=== PATIENT | male | born 1965 | race Caucasian/White ===

== ENCOUNTER 2016-10-17 14:30 | Emergency (ER) | payer MEDICARE, OTHER ==
--- NOTE | 2016-10-17 15:02 | ED ---
Seizure HPI - General Chief Complaint: Seizure Stated Complaint: SEIZURE Time Seen by Provider: 10/17/16 14:33 - History of Present Illness Initial Comments: The patient is a 51-year-old male who presents to the ED with a chief complaint of breakthrough seizure. The patient was at his [facility] participating in his activities for the day when the seizure suddenly occurred. Staff at the alf state that the seizure lasted for approximately 6-7 minutes prior to resolution. The seizure is described as a generalized tonic-clonic seizure. The patient was postictal for a period of approximately 15 minutes after began. Staff at the alf provide the patient with a oral Ativan 1 mg dissolving tablet during the seizure. Given the patient has underlying history of cerebral palsy, this patient has a known history of seizure disorder. Patient follows with Dr. Whitten at the [facility] in [place]. The patient has had no recent adjustments in his medications. The patient has not had any recent head trauma. Patient has not had any cough, fevers, chills. The patient does wear Depends. The patient has a history of UTIs in the past. By the time that the patient arrived in the ED, he had returned to his baseline. - Related Data Home Medications Medication Instructions Recorded Confirmed Aspirin [Aspirin EC] 81 mg PO DAILY 10/17/16 10/17/16 Calcium Carbonate [Calcium] 600 mg PO DAILY 10/17/16 10/17/16 LORazepam [Ativan] 1 mg PO DAILY PRN 10/17/16 10/17/16 Liver Formula 1 tab PO DAILY 10/17/16 10/17/16 Loratadine [Loratadine] 10 mg PO DAILY PRN 10/17/16 10/17/16 OXcarbazepine [Trileptal] 150 mg PO BID 10/17/16 10/17/16 busPIRone HCL 5 mg PO BID 10/17/16 10/17/16 Allergies Allergy/AdvReac Type Severity Reaction Status Date / Time No Known Allergies Allergy Verified 10/17/16 15:10 Review of Systems ROS Statement: Those systems with pertinent positive or pertinent negative responses have been documented in the HPI. ROS Other: All systems not noted in ROS Statement are negative. (ROS obtained from [facility] employee and the patient's sister) Limitations: ROS unobtainable due to patients medical condition Constitutional: Denies: fever Respiratory: Denies: cough, dyspnea Cardiovascular: Denies: chest pain Endocrine: Denies: fatigue Gastrointestinal: Denies: abdominal pain, nausea, vomiting, diarrhea, constipation Skin: Denies: rash Neurological: Reports: other (seizure activity) General Exam Limitations: altered mental status (AAOx1-2 (this is baseline for the patient)) General appearance: alert, in no apparent distress Head exam: Present: atraumatic (patient wearing a helmet), normocephalic, normal inspection Eye exam: Present: normal appearance, PERRL. Absent: scleral icterus, conjunctival injection Pupils: Present: normal accommodation, other (pupils are 3mm, equal and reactive ) ENT exam: Present: normal exam, normal oropharynx, mucous membranes moist Neck exam: Present: normal inspection Respiratory exam: Present: normal lung sounds bilaterally. Absent: respiratory distress, wheezes, rales, rhonchi, stridor Cardiovascular Exam: Present: regular rate, normal rhythm GI/Abdominal exam: Present: soft. Absent: distended, tenderness, guarding, rebound Extremities exam: Present: normal inspection, normal capillary refill, other ( increased tone of the bilateral upper and lower extremities) Back exam: Present: normal inspection Neurological exam: Present: alert, other (AAOx1-2 (patient's baseline)) Psychiatric exam: Present: normal affect, normal mood Skin exam: Present: warm, dry Course Vital Signs 10/17/16 15:10 Temperature 97.1 F L Pulse Rate 99 Respiratory 16 Rate Blood Pressure 120/75 O2 Sat by Pulse 99 Oximetry Medical Decision Making - Medical Decision Making Patient is a 51-year-old male who presents to ED with a chief complaint of breakthrough seizure. This occurred earlier today. It lasted for about 6-7 minutes prior to resolution. Patient was postictal for about 10-15 minutes prior to returning to his baseline. Patient is at his baseline here in the ED. Most recent seizure was approximately one month ago. This was described as generalized as well. Patient resides at a alf. He has not had any recent changes to his medications. No recent head trauma. Patient has had no signs of recent illness. Patient does wear diapers. Patient with history of multiple UTIs. We'll check a urine and urine culture. Check CBC, and neck. Patient takes Trileptal for seizure control. We'll check Trileptal level as well. Will contact patient's neurologist after lab results. Place patient in seizure precautions. 4:23 PM Updated patient's family of overall findings, including normal lab work and urinalysis. They state that the patient has remained at his baseline during his time here in the ED. The patient's sister expresses concern that perhaps the patient has not been obtaining enough sleep. She states that the patient has an obsession with his television. She states that he is constantly repairing his television within his mind. He has a hard time resting because of this. Unfortunately, Trileptal Level is a send-out lab. As such, I will not have the results of this test today. I did try to contact the patient's neurologist but was unable to reach her due to the fact that her office was closed and did not have a number to reach them in emergency. However, I did prenatal genetic counselor the patient's sister to make an appointment with them within the next 2- 3 days. If this is not possible, I have encouraged her to make an appointment as soon as she possibly can for follow-up. The patient may require adjustment in his Trileptal dosing. I encouraged her to return to the ED should the patient have any additional seizure activity while at the alf. I have answered all of her questions to her satisfaction. - Lab Data Result diagrams: 10/17/16 15:16 10/17/16 15:16 Lab Results 10/17/16 10/17/16 10/17/16 Range/Units 15:15 15:16 15:16 WBC 7.7 (3.8-10.6) k/uL RBC 4.71 (4.30-5.90) m/uL Hgb 14.4 (13.0-17.5) gm/dL Hct 42.4 (39.0-53.0) % MCV 89.9 (80.0-100.0) fL MCH 30.6 (25.0-35.0) pg MCHC 34.0 (31.0-37.0) g/dL RDW 13.3 (11.5-15.5) % Plt Count 358 (150-450) k/uL Neutrophils % (Manual) 75.0 % Lymphocytes % (Manual) 21.0 % Monocytes % (Manual) 3.0 % Eosinophils % (Manual) 1.0 % Neutrophils # (Manual) 5.8 (1.3-7.7) k/uL Lymphocytes # (Manual) 1.6 (1.0-4.8) k/uL Monocytes # (Manual) 0.2 (0-1.0) k/uL Eosinophils # (Manual) 0.1 (0-0.7) k/uL Nucleated RBCs 0 (0-0) /100 WBC Manual Slide Review Performed RBC Morphology Normal Sodium 140 (137-145) mmol/L Potassium 4.0 (3.5-5.1) mmol/L Chloride 103 (98-107) mmol/L Carbon Dioxide 26 (22-30) mmol/L Anion Gap 11 mmol/L BUN 9 (9-20) mg/dL Creatinine 0.59 L (0.66-1.25) mg/dL Est GFR (MDRD) Af Amer >60 (>60 ml/min/1.73 sqM) Est GFR (MDRD) Non-Af >60 (>60 ml/min/1.73 sqM) Glucose 91 (74-99) mg/dL Calcium 9.9 (8.4-10.2) mg/dL Magnesium 2.0 (1.6-2.3) mg/dL Urine Color Light Yellow Urine Appearance Cloudy (Clear) Urine pH 6.5 (5.0-8.0) Ur Specific [place] 1.009 (1.001-1.035) Urine Protein Negative (Negative) Urine Glucose (UA) Negative (Negative) Urine Ketones Negative (Negative) Urine Blood Negative (Negative) Urine Nitrite Negative (Negative) Urine Bilirubin Negative (Negative) Urine Urobilinogen <2.0 (<2.0) mg/dL Ur Leukocyte Esterase Negative (Negative) Urine RBC 1 (0-5) /hpf Urine WBC 1 (0-5) /hpf Urine Bacteria Rare H (None) /hpf Urine Mucus Rare H (None) /hpf Urine Yeast (Budding) Few H (None) /hpf Disposition Clinical Impression: Seizure disorder, Breakthrough seizure Disposition: HOME SELF-CARE Condition: Good Instructions: Recurrent Seizures in Adults (ED) Additional Instructions: Please follow up with Dr. Whitten from the [facility] within the next 2-3 days regarding your visit to the ED, if possible. Should this not be possible, please follow up with Dr. Whitten [facility]. Please return to the ED should the patient have additional seizures. Referrals: Freeman Stone DO [Primary Care Provider] - 10/24/16 Time of Disposition: 16:23
[2016-10-17 15:42] LABS: Aty Lym Flag Slight; CH 30.6; CHCM 34.2; HCT 42.4 % (39.0-53.0); HDW 2.24; HGB 14.4 gm/dL (13.0-17.5); MCH 30.6 pg (25.0-35.0); MCV 89.9 fL (80.0-100.0); Mean Platelet Volume 6.9; RBC 4.71 m/uL (4.30-5.90); RDW 13.3 % (11.5-15.5); WBC 7.7 k/uL (3.8-10.6); WBC (Perox) 7.57
[2016-10-17 15:45] LABS: Anion Gap 11 mmol/L; Blood Urea Nitrogen 9 mg/dL (9-20); Calcium 9.9 mg/dL (8.4-10.2); Carbon Dioxide 26 mmol/L (22-30); Chloride 103 mmol/L (98-107); Glucose 91 mg/dL (74-99); Non-African American GFR(MDRD) >60 (>60 ml/min/1.73 sqM); Sodium 140 mmol/L (137-145)
[2016-10-17 15:54] LABS: Appearance,Urine Cloudy (Clear); Bacteria,Urine Rare /hpf; Bilirubin,Urine Negative (Negative); Glucose,Urine (UA) Negative (Negative); Ketones,Urine Negative (Negative); Leukocyte Esterase,Urine Negative (Negative); Mucus,Urine Rare /hpf; Nitrite,Urine Negative (Negative); PH, Urine 6.5 (5.0-8.0); Particle Count 4011; Protein,Urine Negative (Negative); RBC,Urine 1 /hpf (0-5); Specific Gravity,Urine 1.009 (1.001-1.035); UA Billing (MACRO vs. MICRO) MICRO; Urobilinogen,Urine <2.0 mg/dL (<2.0); WBC,Urine 1 /hpf (0-5)
[2016-10-17 16:00] LABS: Add Differential Manual Differential
[2016-10-17 16:02] LABS: Manual Review Performed; Nucleated Red Blood Cells 0 /100 WBC (0-0); RBC Morphology Normal; Total Cells Counted 100
[2016-10-17 16:42] VITALS: BP 136/83; PULSE 102; RESP 18; TEMP 99
== END 2016-10-17 16:41 | disposition home or self-care (01) ==
LOC: EC 14:30
DX: G40.909 Epilepsy, unspecified, not intractable, without status epilepticus (principal); Z79.82 Long term (current) use of aspirin; Z79.899 Other long term (current) drug therapy
CPT/HCPCS: 36415; 80048; 80183; 81001; 83735; 85025; 87086; 93005; 99284

== ENCOUNTER 2017-10-04 12:46 | Emergency (ER) | payer MEDICARE, OTHER ==
[2017-10-04] MEDS ORDERED: SODIUM CHLORIDE 0.9% 500 ML IV STA (12:49)
--- NOTE | 2017-10-04 13:07 | ED ---
General Adult HPI - General Chief complaint: Seizure Stated complaint: seizure Time Seen by Provider: 10/04/17 12:49 Source: family, EMS, RN notes reviewed, old records reviewed, Caregiver Mode of arrival: EMS Limitations: altered mental status, physical limitation - History of Present Illness Initial comments: 52-year-old male with history of seizure disorder presents with seizure lasting approximately 2 minutes. Patient has multiple medical issues, he has history of cerebral palsy, quadriplegia, developmental delay. Patient was at his day program and had 2 minute witnessed seizure. According to staff members he was cyanotic and apneic during this episode. EMS reported heart rate in the 170s. According to the sister who is also his power of commonwealth attorney and primary caregiver he does have seizures with some frequency, approximately every 2 weeks. These are treated with Ativan as needed. He is not on any prophylactic medication secondary to side effects in the past. Currently taking 81 mg aspirin, Tylenol as needed and Ativan for breakthrough seizures. Patient is postictal at the time of my evaluation. - Related Data Home Medications Medication Instructions Recorded Confirmed Aspirin [Aspirin EC] 81 mg PO DAILY 10/17/16 10/04/17 Previous Rx's Medication Instructions Recorded Aspirin 325 mg PO DAILY #30 tab 10/04/17 Metoprolol Tartrate [Lopressor] 12.5 mg PO BID #60 dose 10/04/17 Allergies Allergy/AdvReac Type Severity Reaction Status Date / Time No Known Allergies Allergy Verified 10/04/17 13:02 Review of Systems ROS Statement: Those systems with pertinent positive or pertinent negative responses have been documented in the HPI. ROS Other: All systems not noted in ROS Statement are negative. Past Medical History Past Medical History: Seizure Disorder Additional Past Medical History / Comment(s): cerebral palsy, hydrocephalus with shunt, quadrapeligic History of Any Multi-Drug Resistant Organisms: None Reported Additional Past Surgical History / Comment(s): shunt in brain, foot surgery Past Psychological History: No Psychological Hx Reported Smoking Status: Never smoker Past Alcohol Use History: None Reported Past Drug Use History: None Reported General Exam Limitations: altered mental status, physical limitation General appearance: alert, in no apparent distress Head exam: Present: atraumatic, normocephalic Eye exam: Present: normal appearance, PERRL, EOMI ENT exam: Present: mucous membranes dry Neck exam: Present: normal inspection. Absent: tenderness, meningismus Respiratory exam: Present: normal lung sounds bilaterally. Absent: respiratory distress Cardiovascular Exam: Present: tachycardia, irregular rhythm GI/Abdominal exam: Present: soft. Absent: distended, tenderness Extremities exam: Present: normal capillary refill, other (Spasticity of all 4 extremities. No flaccid paralysis ). Absent: pedal edema Neurological exam: Present: alert Skin exam: Present: warm, dry, intact. Absent: cyanosis, diaphoretic Course Vital Signs 10/04/17 10/04/17 10/04/17 12:49 13:14 13:45 Pulse Rate 87 113 H 112 H Respiratory 20 20 20 Rate Blood Pressure 129/64 132/83 136/68 O2 Sat by Pulse 95 98 99 Oximetry 10/04/17 14:58 Pulse Rate 113 H Respiratory 18 Rate Blood Pressure 145/92 O2 Sat by Pulse 98 Oximetry EKG Findings - EKG Comments: EKG Findings:: EKG obtained a 12 53, A. fib with RVR, ventricular rate of 176, QRS duration 74, QTC 438. EKG obtained at 1356 shows sinus tachycardia with a rate of 116, CA interval 134, QRS duration 76, QTC 458, no ST segment elevation. Medical Decision Making - Medical Decision Making 52-year-old male presenting with tonic-clonic seizure lasting about 2 minutes. Patient does have seizure history, he has recurrent seizures approximately one every 2-3 weeks. When he initially presented. He was found to be in A. fib with RVR, ventricular rate of 176. Patient's heart rate improved and return to sinus with 500 mL normal saline bolus. Repeat EKG shows sinus tachycardia at 116. Patient's sister who is also his power of commonwealth attorney is at bedside. Given the sustained tachycardia, laboratory studies are obtained, white blood cell count 10.7, hemoglobin 11.1, electrolytes are normal. Troponin is negative. Magnesium normal. TSH 1.59 which is normal. D-dimer mildly elevated at 0.55. CT angiography is obtained, this shows no large central pulmonary embolism, however the peripheral vasculature is nondiagnostic secondary to patient movement. These findings as well as A. fib with RVR discussed at length with the patient's sister. They are offered observation for cardiology evaluation of A. fib. This would be very difficult for the patient given his past medical history. Ultimately we decided to increase the patient's aspirin to 325 daily, and he will be started on metoprolol 12.5 twice a day. They will monitor her heart rate and blood pressure over the next week and follow up with primary care physician. I do not feel this patient is a candidate for anticoagulation, he is a fall risk , and has recurrent seizure. Diagnosis: Tonic-clonic seizure, atrial fibrillation with RVR. - Lab Data Result diagrams: 10/04/17 13:08 10/04/17 13:08 Lab Results 10/04/17 10/04/17 10/04/17 Range/Units 13:08 13:08 13:08 WBC 10.7 H (3.8-10.6) k/uL RBC 4.69 (4.30-5.90) m/uL Hgb 11.1 L (13.0-17.5) gm/dL Hct 36.3 L (39.0-53.0) % MCV 77.3 L (80.0-100.0) fL MCH 23.6 L (25.0-35.0) pg MCHC 30.5 L (31.0-37.0) g/dL RDW 15.1 (11.5-15.5) % Plt Count 510 H (150-450) k/uL Neutrophils % 70 % Lymphocytes % 14 % Monocytes % 10 % Eosinophils % 2 % Basophils % 0 % Neutrophils # 7.5 (1.3-7.7) k/uL Lymphocytes # 1.5 (1.0-4.8) k/uL Monocytes # 1.0 (0-1.0) k/uL Eosinophils # 0.2 (0-0.7) k/uL Basophils # 0.0 (0-0.2) k/uL Hypochromasia Moderate PT 9.8 (9.0-12.0) sec INR 1.0 (<1.2) APTT 23.2 (22.0-30.0) sec D-Dimer (<0.60) mg/L FEU Sodium 140 (137-145) mmol/L Potassium 4.3 (3.5-5.1) mmol/L Chloride 100 (98-107) mmol/L Carbon Dioxide 24 (22-30) mmol/L Anion Gap 16 mmol/L BUN 12 (9-20) mg/dL Creatinine 0.60 L (0.66-1.25) mg/dL Est GFR (CKD-EPI)AfAm >90 (>60 ml/min/1.73 sqM) Est GFR (CKD-EPI)NonAf >90 (>60 ml/min/1.73 sqM) Glucose 120 H (74-99) mg/dL Calcium 9.6 (8.4-10.2) mg/dL Magnesium 1.8 (1.6-2.3) mg/dL Total Bilirubin 0.4 (0.2-1.3) mg/dL AST 28 (17-59) U/L ALT 30 (21-72) U/L Alkaline Phosphatase 84 (38-126) U/L Total Creatine Kinase (55-170) U/L CK-MB (CK-2) (0.0-2.4) ng/mL CK-MB (CK-2) Rel Index Troponin I (0.000-0.034) ng/mL Total Protein 7.5 (6.3-8.2) g/dL Albumin 4.0 (3.5-5.0) g/dL TSH 1.590 (0.465-4.680) mIU/L 10/04/17 10/04/17 Range/Units 13:08 14:30 WBC (3.8-10.6) k/uL RBC (4.30-5.90) m/uL Hgb (13.0-17.5) gm/dL Hct (39.0-53.0) % MCV (80.0-100.0) fL MCH (25.0-35.0) pg MCHC (31.0-37.0) g/dL RDW (11.5-15.5) % Plt Count (150-450) k/uL Neutrophils % % Lymphocytes % % Monocytes % % Eosinophils % % Basophils % % Neutrophils # (1.3-7.7) k/uL Lymphocytes # (1.0-4.8) k/uL Monocytes # (0-1.0) k/uL Eosinophils # (0-0.7) k/uL Basophils # (0-0.2) k/uL Hypochromasia PT (9.0-12.0) sec INR (<1.2) APTT (22.0-30.0) sec D-Dimer 0.55 (<0.60) mg/L FEU Sodium (137-145) mmol/L Potassium (3.5-5.1) mmol/L Chloride (98-107) mmol/L Carbon Dioxide (22-30) mmol/L Anion Gap mmol/L BUN (9-20) mg/dL Creatinine (0.66-1.25) mg/dL Est GFR (CKD-EPI)AfAm (>60 ml/min/1.73 sqM) Est GFR (CKD-EPI)NonAf (>60 ml/min/1.73 sqM) Glucose (74-99) mg/dL Calcium (8.4-10.2) mg/dL Magnesium (1.6-2.3) mg/dL Total Bilirubin (0.2-1.3) mg/dL AST (17-59) U/L ALT (21-72) U/L Alkaline Phosphatase (38-126) U/L Total Creatine Kinase 113 (55-170) U/L CK-MB (CK-2) 1.1 (0.0-2.4) ng/mL CK-MB (CK-2) Rel Index 1.0 Troponin I <0.012 (0.000-0.034) ng/mL Total Protein (6.3-8.2) g/dL Albumin (3.5-5.0) g/dL TSH (0.465-4.680) mIU/L Critical Care Time Critical Care Time: Yes Total Critical Care Time: 35 Disposition Clinical Impression: Generalized seizure, A-fib Disposition: HOME SELF-CARE Condition: Fair Instructions: Recurrent Seizures in Adults (ED), A-fib (Atrial Fibrillation) ( ED) Prescriptions: Aspirin 325 mg PO DAILY #30 tab Metoprolol Tartrate [Lopressor] 12.5 mg PO BID #60 dose Referrals: Freeman Stone DO [Primary Care Provider] - 1-2 days Time of Disposition: 16:38
[2017-10-04 13:20] LABS: Basophils % (A) 0 %; Eosinophils # (A) 0.2 k/uL (0-0.7); Eosinophils % (A) 2 %; HCT 36.3 % (39.0-53.0); HGB 11.1 gm/dL (13.0-17.5); Hypochromasia Moderate; Lymphocytes # (A) 1.5 k/uL (1.0-4.8); Lymphocytes % (A) 14 %; MCH 23.6 pg (25.0-35.0); MCHC 30.5 g/dL (31.0-37.0); MCV 77.3 fL (80.0-100.0); Mean Platelet Volume 6.9; Monocytes % (A) 10 %; Neutrophils # (A) 7.5 k/uL (1.3-7.7); Neutrophils % (A) 70 %; Platelet Count 510 k/uL (150-450); RBC 4.69 m/uL (4.30-5.90); RDW 15.1 % (11.5-15.5); WBC 10.7 k/uL (3.8-10.6)
[2017-10-04 13:28] LABS: Partial Thromboplastin Time 23.2 sec (22.0-30.0); Prothrombin Time 9.8 sec (9.0-12.0)
[2017-10-04 13:30] LABS: ALT 30 U/L (21-72); AST 28 U/L (17-59); Alkaline Phosphatase 84 U/L (38-126); Anion Gap 16 mmol/L; Blood Urea Nitrogen 12 mg/dL (9-20); Calcium 9.6 mg/dL (8.4-10.2); Carbon Dioxide 24 mmol/L (22-30); Chloride 100 mmol/L (98-107); Glucose 120 mg/dL (74-99); Magnesium 1.8 mg/dL (1.6-2.3); Potassium 4.3 mmol/L (3.5-5.1); Sodium 140 mmol/L (137-145); Total Bilirubin 0.4 mg/dL (0.2-1.3); Total Protein 7.5 g/dL (6.3-8.2)
[2017-10-04 13:39] LABS: Creatine Kinase 113 U/L (55-170)
--- NOTE | 2017-10-04 13:40 | XR ---
EXAMINATION TYPE: XR chest 1V portable DATE OF EXAM: 10/04/2017 Comparison: None Clinical History: 52-year-old male with Pain Findings: Heart is borderline enlarged. Aorta within normal limits. Mild diffuse interstitial prominence. Some strandy right basilar atelectasis. No consolidation or significant pleural effusion. Impression: 1. Borderline heart size. 2. Chronic-appearing changes, possible bronchitis or asthma. 3. No focal infiltrate.
[2017-10-04 13:51] LABS: Creatine Kinase MB 1.1 ng/mL (0.0-2.4); Troponin I <0.012 ng/mL (0.000-0.034)
[2017-10-04] MEDS ORDERED: SODIUM CHLORIDE 0.9% 1,000 ML IV ONE (14:03)
[2017-10-04] MEDS ORDERED: LORazepam 2 MG/ML INJ IV STA (15:15)
[2017-10-04] MEDS ORDERED: RX INFO: IV CONTRAST WAS GIVEN 1 EACH MISC MISCELLANE PRN (15:15)
[2017-10-04 15:19] VITALS: PULSE 113
--- NOTE | 2017-10-04 16:14 | CT ---
EXAMINATION TYPE: CT angio chest DATE OF EXAM: 10/04/2017 COMPARISON: NONE HISTORY: 52-year-old male found unresponsive. TECHNIQUE: Contiguous axial scanning of the chest performed with IV Contrast, patient injected with 1 00ml mL of Isovue 370. Coronal/sagittal MIP reconstructions performed. CT DLP: 427.9 mGycm Automated exposure control for dose reduction was used. FINDINGS: Heart is upper limits of normal in size. No pericardial effusion. Borderline ectasia ascending aorta 3.5 cm. There is bovine configuration to the aortic arch. Suboptimal contrast bolus with attenuation of 207 Hounsfield units. In addition, there is breathing m otion artifact throughout the scan limiting assessment for pulmonary embolus. No large central pulmon deidre embolus. The lobar, segmental, and more distal arterial branches are essentially nondiagnostic. Calcified mediastinal and right hilar lymph nodes compatible with prior granulomatous disease. Motion artifact limits assessment for small pulmonary nodules. Mild diffuse bronchial wall thickening suggests bronchitis or asthma. Calcified granuloma posterior right lower lobe. Extensive strandy and hazy areas of probable atelectasis. There is distention of the azygos vein. More focal opacity peripheral left base could represent atelectasis or early infiltrate. Circumferential thickening of the lower esophagus could reflect esophagitis, neoplasm, or underlying hiatal hernia and should be correlated clinically. There is excessive motion artifact limiting assess ment. Multiple calcified granulomas within the liver and a few in the spleen. Bones: No osseous destructive process. Cervical spondylosis. IMPRESSION: 1. DEGRADED EXAM DUE TO PATIENT BREATHING. NO LARGE CENTRAL PULMONARY EMBOLUS. THE LOBAR, SEGMENTAL, AND MORE DISTAL ARTERIAL BRANCHES ARE NONDIAGNOSTIC AND PULMONARY EMBOLI IN THESE LOCATIONS CANNOT BE EXCLUDED ON THE BASIS OF THIS EXAM. 2. MILD DIFFUSE BRONCHIAL WALL THICKENING SUGGESTS BRONCHITIS OR ASTHMA. THERE IS SOME FOCAL PATCHY A TELECTASIS OR EARLY INFILTRATE AT THE PERIPHERAL LEFT BASE. 3. CIRCUMFERENTIAL THICKENING ALONG THE LOWER ESOPHAGUS COULD REFLECT ESOPHAGITIS, NEOPLASM, OR UNDER LYING HIATAL HERNIA AND SHOULD BE CORRELATED CLINICALLY. THE EXCESSIVE MOTION ARTIFACT LIMITS ASSESSM ENT. 4. PRIOR GRANULOMATOUS DISEASE.
[2017-10-04 17:01] VITALS: BP 118/78; RESP 16; TEMP 98.9
== END 2017-10-04 17:10 | disposition home or self-care (01) ==
LOC: EC 12:46
DX: G40.909 Epilepsy, unspecified, not intractable, without status epilepticus (principal); I48.91 Unspecified atrial fibrillation; Z79.82 Long term (current) use of aspirin; R00.0 Tachycardia, unspecified
CPT/HCPCS: 99291 ×2; 96374 ×2; 96361 ×4; 36415; 93005; 85379; 80053; 82550; 82553; 83735; 84443; 84484; 85025; 85610; 85730; 71045; 71275; J2060; Q9967

== ENCOUNTER 2017-10-14 08:10 | Day surgery (SDC) | payer MEDICARE, OTHER ==
[2017-10-11 09:20] VITALS: BMI 29.9
[~2017-10-14 08:10] MED LIST: LACTATED RINGERS 1,000 ML IV SCH; LIDOCAINE 1% 20 ML VIAL (10MG/ML) FOR IV START INTRADERMA PRN
[2017-10-14 08:54] VITALS: RESP 16; TEMP 98.3
[2017-10-14] MEDS ORDERED: PROPOFOL 10 MG/ML 20 ML VIAL IV ONE (09:23)
[2017-10-14] MEDS ORDERED: LIDOCAINE 1% INJ 10MG/ML (20 ML MDV) ONE (09:23)
--- NOTE | 2017-10-14 09:23 | P.GSHP ---
History of Present Illness H&P Date: 10/14/17 Chief Complaint: GERD This is a 52-year-old male referred from Dr. Freeman Stone. Patient rents today for EGD. He's had issues with GERD. His recent CAT scan shows evidence of thickening of the lower esophagus. 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) hiatal hernia and thickening of esophagus, hx aspiration History of Any Multi-Drug Resistant Organisms: None Reported Additional Past Surgical History / Comment(s): shunt in brain, foot surgery Past Anesthesia/Blood Transfusion Reactions: No Reported Reaction Smoking Status: Never smoker - Past Family History Mother Family Medical History: AFIB, Pulmonary Embolus Medications and Allergies Home Medications Medication Instructions Recorded Confirmed Type Aspirin 325 mg PO DAILY #30 tab 10/04/17 10/11/17 Rx Allergies Allergy/AdvReac Type Severity Reaction Status Date / Time lorazepam [From Ativan] AdvReac aggressive Verified 10/14/17 08:37 behavior Surgical - Exam Vital Signs Temp Pulse Resp BP Pulse Ox 98.3 F 79 16 116/75 95 10/14/17 08:53 10/14/17 08:53 10/14/17 08:53 10/14/17 08:53 10/14/17 08:53 - General well developed, no distress - Eyes PERRL - ENT normal pinna - Neck no masses - Respiratory normal expansion - Cardiovascular Rhythm: regular - Abdomen Abdomen: soft, non tender Assessment and Plan Assessment: GERD. We'll perform EGD.
--- NOTE | 2017-10-14 09:36 | P.OP ---
Date of Procedure: 10/14/17 Preoperative Diagnosis: GERD Postoperative Diagnosis: Large hiatal hernia, paraesophageal hernia Esophagitis Antral gastritis Procedure(s) Performed: EGD Anesthesia: MAC Surgeon: Terell Dennis Pathology: other (Antrum, esophagus) Condition: stable Disposition: PACU Description of Procedure: The patient's placed on the endoscopy table in the lateral position. He received IV sedation. The gastroscope placed oropharynx passed in the esophagus into the stomach. Scope was then placed through the pylorus. The first and second portion of the duodenum. Normal. Scope was then brought back the antrum this was mildly inflamed. A biopsies was performed. The scope was then retroflexed and the remainder some appeared normal. The patient a large sliding hiatal hernia with a paraesophageal component. The GE junction was at 38 cm. The distal esophagus appeared grossly inflamed. It was irritable and friable. A biopsies performed. The proximal esophagus appeared normal. Scope withdrawn for patient.
[2017-10-14 10:16] VITALS: BP 127/79; PULSE 87
== END 2017-10-14 10:19 | disposition home or self-care (01) ==
LOC: ORWHC2ENDO 08:10
PROVIDERS: ATTEND Surgery
DX: K29.50 Unspecified chronic gastritis without bleeding (principal); K20.9 Esophagitis, unspecified; K44.9 Diaphragmatic hernia without obstruction or gangrene; K31.89 Other diseases of stomach and duodenum; K22.8 Other specified diseases of esophagus; I48.91 Unspecified atrial fibrillation; G80.9 Cerebral palsy, unspecified; G91.9 Hydrocephalus, unspecified; Z98.2 Presence of cerebrospinal fluid drainage device; G40.909 Epilepsy, unspecified, not intractable, without status epilepticus; Z79.82 Long term (current) use of aspirin; Z88.8 Allergy status to other drugs, medicaments and biological substances
CPT/HCPCS: 88305; 43239; J2001; J2704

== ENCOUNTER 2018-09-29 16:08 | Emergency (ER) | payer MEDICARE, OTHER ==
[2018-09-29 16:13] LABS: Glucose,Whole Blood 110 mg/dL (75-99)
--- NOTE | 2018-09-29 16:19 | ED ---
General Adult HPI - General Stated complaint: Fall-JOVITA Time Seen by Provider: 09/29/18 16:15 - History of Present Illness Initial comments: Dictation was produced using [employer] dictation software. please excuse any grammatical, word or spelling errors. Chief Complaint: 53-year-old male with past medical history of cerebral palsy, hydrocephalus status post DIE CASTING MACHINE OPERATOR shunt and fenestration procedure presents after being found down. History of Present Illness: Patient is a 53-year-old male. He has a history of seizures, cerebral palsy, status post DIE CASTING MACHINE OPERATOR shunt surgery. He presents today after being found down at home. Patient currently resides in a correction that is owned by his sister. Patient was in the bathroom and left unattended for a couple minutes. They heard a loud thud and saw that he was on the ground. There was no witness seizure like activity. Patient also had an injury to his right frontal forehead. Patient's had seizures frequently. He presents today with one of his sisters. His sister apparently does not really know much about patient's medication history or his medical history. However she does report that patient is able to have basic conversation. He is nonambulatory at baseline PHYSICAL EXAM: General Impression: No acute distress HEENT: 2 cm complex laceration to the right lateral eyebrow, extra-ocular movements intact, pupils equal and reactive to light bilaterally, mucous membranes moist. Cardiovascular: Heart regular rate and rhythm, S1&S2 audible, no murmurs, rubs or gallops Chest: Lungs clear to auscultation bilaterally, no rhonchi, no wheeze, no rales Abdomen: Bowel sounds present, abdomen soft, non-tender, non-distended, no organomegaly Musculoskeletal: Pulses present and equal in all extremities, no peripheral edema Motor: no focal deficits noted Neurological: Extraocular muscles are grossly intact. Patient moving bilateral upper extremities, patient is nonverbal Skin: Intact with no visualized rashes ED course: 53-year-old male complex neurologic history including cerebral palsy, seizures hydrocephalus, status post fenestration procedure and ventricular peritoneal shunt presents after being found down. Vital signs upon arrival shows heart rate of 104, rest vital signs within acceptable limits. Repeat vital signs are unremarkable. Patient's sister who is her primary mold maker plastic molds showed up at bedside states that she left patient was provided to use the bathroom. She went to make him some food and give him his medications when she heard a thud that's when she found him on the ground. Patient has frequent seizures. His last seizure was 20 days ago he is not on any antiseizure medications. Patient does have a neurologist however. Lab oratory evaluation was obtained. CBC is at baseline for patient. Coag panel is unremarkable. Metabolic panel shows gap acidosis. He has lactose dose of 7.3. This likely reflects seizure. Urinalysis is unremarkable. Facial laceration was repaired using Steri-Strips. Patient was observed in emergency department for several hours with stable medical condition. At this point patient should follow-up with neurologist for outpatient management of seizures. Sisters are told to refrain from leaving patient unattended around several hard object secondary to possible fall and striking his head. Patient prescription for discharge. They report that he is acting at baseline currently. EKG interpretation: Ventricular rate 99, normal sinus rhythm, MA interval 154, care is 82, QTc 444. No MA prolongation, no QTC prolongation, no ST or T-wave changes noted. Overall, this EKG is unremarkable - Related Data Home Medications Medication Instructions Recorded Confirmed Alkadophilus 1 tab PO DAILY 09/29/18 09/29/18 Li-Zyme 1 tab PO BID 09/29/18 09/29/18 Mg-Zyme 1 tab PO DAILY@1500 09/29/18 09/29/18 Neuro 5 Htp Plus 1 tab PO BID 09/29/18 09/29/18 Allergies Allergy/AdvReac Type Severity Reaction Status Date / Time lorazepam [From Ativan] AdvReac aggressive Verified 09/29/18 16:43 behavior Review of Systems ROS Statement: Those systems with pertinent positive or pertinent negative responses have been documented in the HPI. ROS Other: All systems not noted in ROS Statement are negative. 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) hiatal hernia and thickening of esophagus, hx aspiration History of Any Multi-Drug Resistant Organisms: None Reported Additional Past Surgical History / Comment(s): shunt in brain, foot surgery Past Anesthesia/Blood Transfusion Reactions: No Reported Reaction Smoking Status: Never smoker - Past Family History Mother Family Medical History: AFIB, Pulmonary Embolus Course Vital Signs 09/29/18 09/29/18 09/29/18 16:11 16:29 17:30 Temperature 98.4 F Pulse Rate 104 H 97 106 H Respiratory 24 24 16 Rate Blood Pressure 145/88 166/72 127/88 O2 Sat by Pulse 97 99 99 Oximetry 09/29/18 17:56 Temperature Pulse Rate 89 Respiratory 16 Rate Blood Pressure 115/97 O2 Sat by Pulse 96 Oximetry Procedures - Laceration Laceration #1 Consent Obtained: verbal consent Indication: laceration Site: face Description: stellate Depth: simple, single layer Size of Sutures: other Patient Tolerated Procedure: well Additional Comments: steri strips Medical Decision Making - Lab Data Result diagrams: 09/29/18 16:37 09/29/18 16:37 Lab Results 09/29/18 09/29/18 09/29/18 Range/Units 16:11 16:37 16:37 WBC 10.1 (3.8-10.6) k/uL RBC 5.46 (4.30-5.90) m/uL Hgb 12.1 L (13.0-17.5) gm/dL Hct 40.2 (39.0-53.0) % MCV 73.7 L (80.0-100.0) fL MCH 22.2 L (25.0-35.0) pg MCHC 30.1 L (31.0-37.0) g/dL RDW 17.8 H (11.5-15.5) % Plt Count 458 H (150-450) k/uL Neutrophils % (Manual) 70 % Lymphocytes % (Manual) 26 % Monocytes % (Manual) 2 % Eosinophils % (Manual) 2 % Neutrophils # (Manual) 7.07 (1.3-7.7) k/uL Lymphocytes # (Manual) 2.63 (1.0-4.8) k/uL Monocytes # (Manual) 0.20 (0-1.0) k/uL Eosinophils # (Manual) 0.20 (0-0.7) k/uL Nucleated RBCs 0 (0-0) /100 WBC Hypochromasia Marked Anisocytosis Slight Microcytosis Moderate PT (9.0-12.0) sec INR (<1.2) Sodium (137-145) mmol/L Potassium (3.5-5.1) mmol/L Chloride (98-107) mmol/L Carbon Dioxide (22-30) mmol/L Anion Gap mmol/L BUN (9-20) mg/dL Creatinine (0.66-1.25) mg/dL Est GFR (CKD-EPI)AfAm (>60 ml/min/1.73 sqM) Est GFR (CKD-EPI)NonAf (>60 ml/min/1.73 sqM) Glucose (74-99) mg/dL POC Glucose (mg/dL) 110 H (75-99) mg/dL POC Glu Manager Cardiac Cath ID Mulu Franco Plasma Lactic Acid Robson 7.3 H* (0.7-2.0) mmol/L Calcium (8.4-10.2) mg/dL Magnesium (1.6-2.3) mg/dL Total Bilirubin (0.2-1.3) mg/dL AST (17-59) U/L ALT (21-72) U/L Alkaline Phosphatase (38-126) U/L Ammonia 38 H (<30) umol/L Total Protein (6.3-8.2) g/dL Albumin (3.5-5.0) g/dL Urine Color Urine Appearance (Clear) Urine pH (5.0-8.0) Ur Specific Leland (1.001-1.035) Urine Protein (Negative) Urine Glucose (UA) (Negative) Urine Ketones (Negative) Urine Blood (Negative) Urine Nitrite (Negative) Urine Bilirubin (Negative) Urine Urobilinogen (<2.0) mg/dL Ur Leukocyte Esterase (Negative) Urine RBC (0-5) /hpf Ur Squamous Epith Cells (0-4) /hpf Hyaline Casts (0-2) /lpf Urine Mucus (None) /hpf 09/29/18 09/29/18 09/29/18 Range/Units 16:37 16:37 16:37 WBC (3.8-10.6) k/uL RBC (4.30-5.90) m/uL Hgb (13.0-17.5) gm/dL Hct (39.0-53.0) % MCV (80.0-100.0) fL MCH (25.0-35.0) pg MCHC (31.0-37.0) g/dL RDW (11.5-15.5) % Plt Count (150-450) k/uL Neutrophils % (Manual) % Lymphocytes % (Manual) % Monocytes % (Manual) % Eosinophils % (Manual) % Neutrophils # (Manual) (1.3-7.7) k/uL Lymphocytes # (Manual) (1.0-4.8) k/uL Monocytes # (Manual) (0-1.0) k/uL Eosinophils # (Manual) (0-0.7) k/uL Nucleated RBCs (0-0) /100 WBC Hypochromasia Anisocytosis Microcytosis PT 10.2 (9.0-12.0) sec INR 0.9 (<1.2) Sodium 139 (137-145) mmol/L Potassium 4.4 (3.5-5.1) mmol/L Chloride 103 (98-107) mmol/L Carbon Dioxide 19 L (22-30) mmol/L Anion Gap 17 mmol/L BUN 13 (9-20) mg/dL Creatinine 0.70 (0.66-1.25) mg/dL Est GFR (CKD-EPI)AfAm >90 (>60 ml/min/1.73 sqM) Est GFR (CKD-EPI)NonAf >90 (>60 ml/min/1.73 sqM) Glucose 102 H (74-99) mg/dL POC Glucose (mg/dL) (75-99) mg/dL POC Glu Manager Cardiac Cath ID Plasma Lactic Acid Robson (0.7-2.0) mmol/L Calcium 9.6 (8.4-10.2) mg/dL Magnesium 2.0 (1.6-2.3) mg/dL Total Bilirubin 0.3 (0.2-1.3) mg/dL AST 23 (17-59) U/L ALT 20 L (21-72) U/L Alkaline Phosphatase 99 (38-126) U/L Ammonia (<30) umol/L Total Protein 7.7 (6.3-8.2) g/dL Albumin 4.3 (3.5-5.0) g/dL Urine Color Light Yellow Urine Appearance Clear (Clear) Urine pH 5.0 (5.0-8.0) Ur Specific Leland 1.016 (1.001-1.035) Urine Protein 1+ H (Negative) Urine Glucose (UA) Negative (Negative) Urine Ketones 1+ H (Negative) Urine Blood Trace H (Negative) Urine Nitrite Negative (Negative) Urine Bilirubin Negative (Negative) Urine Urobilinogen <2.0 (<2.0) mg/dL Ur Leukocyte Esterase Negative (Negative) Urine RBC 4 (0-5) /hpf Ur Squamous Epith Cells <1 (0-4) /hpf Hyaline Casts 7 H (0-2) /lpf Urine Mucus Occasional H (None) /hpf Disposition Clinical Impression: Seizure, Head contusion, Facial laceration Disposition: HOME SELF-CARE Instructions (If sedation given, give patient instructions): Epilepsy (ED) Is patient prescribed a controlled substance at d/c from ED?: No Referrals: Freeman Stone DO [Primary Care Provider] - 1-2 days Time of Disposition: 18:34
[2018-09-29] MEDS: LORazepam 2 MG/ML INJ IV STA ×2 (16:31→16:32)
[2018-09-29 16:59] LABS: Appearance,Urine Clear (Clear); Bilirubin,Urine Negative (Negative); Blood,Urine Trace (Negative); Color,Urine Light Yellow; Glucose,Urine (UA) Negative (Negative); Hyaline Casts,Urine 7 /lpf (0-2); Ketones,Urine 1+ (Negative); Leukocyte Esterase,Urine Negative (Negative); Mucus,Urine Occasional /hpf; Nitrite,Urine Negative (Negative); Protein,Urine 1+ (Negative); RBC,Urine 4 /hpf (0-5); Specific Gravity,Urine 1.016 (1.001-1.035); Squamous Epithelial Cell,Urine <1 /hpf (0-4); Urobilinogen,Urine <2.0 mg/dL (<2.0)
[2018-09-29 17:00] LABS: Anisocytosis Slight; HCT 40.2 % (39.0-53.0); HGB 12.1 gm/dL (13.0-17.5); Hypochromasia Marked; MCH 22.2 pg (25.0-35.0); MCHC 30.1 g/dL (31.0-37.0); MCV 73.7 fL (80.0-100.0); Mean Platelet Volume 6.8; Microcytosis Moderate; Platelet Count 458 k/uL (150-450); RBC 5.46 m/uL (4.30-5.90); RDW 17.8 % (11.5-15.5); WBC 10.1 k/uL (3.8-10.6)
[2018-09-29 17:09] LABS: INR 0.9 (<1.2); Prothrombin Time 10.2 sec (9.0-12.0)
[2018-09-29 17:13] LABS: ALT 20 U/L (21-72); AST 23 U/L (17-59); Albumin 4.3 g/dL (3.5-5.0); Alkaline Phosphatase 99 U/L (38-126); Anion Gap 17 mmol/L; Blood Urea Nitrogen 13 mg/dL (9-20); Calcium 9.6 mg/dL (8.4-10.2); Carbon Dioxide 19 mmol/L (22-30); Chloride 103 mmol/L (98-107); Glucose 102 mg/dL (74-99); Potassium 4.4 mmol/L (3.5-5.1); Sodium 139 mmol/L (137-145); Total Bilirubin 0.3 mg/dL (0.2-1.3); Total Protein 7.7 g/dL (6.3-8.2)
[2018-09-29 17:18] LABS: Lactic Acid, Venous 7.3 mmol/L (0.7-2.0)
--- NOTE | 2018-09-29 17:33 | CT ---
EXAMINATION TYPE: CT brain cspine wo con DATE OF EXAM: 09/29/2018 COMPARISON: CT brain November 09, 2013 HISTORY: Fall injury today with Right frontal headache and neck pain. History of cerebral palsy. CT DLP: 2342.5 mGycm. Automated Exposure Control for Dose Reduction was Utilized. TECHNIQUE: CT scan of the head and cervical spine are performed without contrast. FINDINGS: There is redemonstration of bilateral frontal helen holes and higher bilateral parietal-occi pital helen holes. There is no acute intracranial hemorrhage or midline shift. There is ventricular an d sulcal prominence redemonstrated with asymmetric enlargement of left lateral ventricle versus right side again seen. Corpus callosum is thinned. Multifocal areas of encephalomalacia are redemonstrated near bur holes as well as right frontal parietal region axial image 39. There is new small right acu te supraorbital scalp hematoma. The calvarium is intact. The globes are intact bilaterally. Visualize d paranasal sinuses are clear. Cervical spine is visualized in its entirety from C1 through upper thoracic levels and demonstrates s atisfactory alignment without evidence of acute fracture or dislocation. Prevertebral soft tissue ap pears within normal limits. The C1-C2 articulation is within normal limits on the coronal images. Ve rtebral body heights are maintained. There is [id number] disc space narrowing C2-C3 level with mild anterior spurring. There is moderate disc space narrowing with severe anterior spurring C3-C4 le epifanio. There is severe disc space narrowing C4-C5 level with some ossific fusion and severe anterior sp urring. There is severe disc space narrowing with vacuum disc phenomenon at C5-C6 level and mild spur ring. There is moderate to severe disc space narrowing and anterior spurring C6-C7 and C7-T1 levels. Posterior calcified disc herniation effaces the anterior thecal sac at C7-T1 level on sagittal images . Review of axial images shows uncovertebral facet spurring bilaterally at multiple levels causing bila teral neural foraminal narrowing. Lung apices show no pneumothorax. Respiratory motion artifact aggre gation is seen. There is partial visualization of a central catheter ascending the right internal jug ular vein not as well-visualized on localizer, correlate clinically for misplaced central line. IMPRESSION: 1. There is no acute fracture or dislocation evident in the cervical spine. 2. No acute intracranial hemorrhage or midline shift is seen. Other findings as noted above.
[2018-09-29] MEDS ORDERED: SODIUM CHLORIDE 0.9% 500 ML IV STA (17:50)
[2018-09-29 17:57] VITALS: PULSE 89
[2018-09-29 18:06] LABS: Lymphocytes # (M) 2.63 k/uL (1.0-4.8); Neutrophils # (M) 7.07 k/uL (1.3-7.7); Neutrophils % (M) 70 %; Nucleated Red Blood Cells 0 /100 WBC (0-0); Total Cells Counted 100
[2018-09-29 19:30] VITALS: BP 116/71; RESP 18; TEMP 98.3
== END 2018-09-29 19:33 | disposition home or self-care (01) ==
LOC: EEVIPCON 16:08 → EC 16:08
DX: S01.111A Laceration without foreign body of right eyelid and periocular area, initial encounter (principal); R56.9 Unspecified convulsions; G80.9 Cerebral palsy, unspecified; Z98.2 Presence of cerebrospinal fluid drainage device; Z79.899 Other long term (current) drug therapy; Z88.8 Allergy status to other drugs, medicaments and biological substances; W19.XXXA Unspecified fall, initial encounter; Y92.002 Bathroom of unspecified non-institutional (private) residence as the place of occurrence of the external cause; Z53.8 Procedure and treatment not carried out for other reasons
CPT/HCPCS: 36415; 70450; 72125; 80053; 81001; 82140; 83605; 83735; 85025; 85610; 93005; 96360; 99285

== ENCOUNTER 2020-05-13 16:53 | Inpatient (IN) | payer MEDICARE, OTHER ==
[2020-05-13] MEDS ORDERED: DILTIAZEM DRIP BOLUS FROM BAG 1 MG SOLN IV ONE (17:07)
--- NOTE | 2020-05-13 17:11 | ED ---
General Adult HPI - General Chief complaint: Chest Pain Stated complaint: chest pain Time Seen by Provider: 05/13/20 16:56 Source: patient, family, EMS, RN notes reviewed Mode of arrival: EMS Limitations: language barrier, altered mental status, physical limitation - History of Present Illness Initial comments: patient is a pleasant 55-year-old male with history of cervical palsy presenting to emergency Department with reported chest pain. Patient did come from facility. EMS found patient tachycardic. Patient did have witnessed seizure lasting around 30 seconds and postictal for a couple minutes following this. Facility did tell EMS that this is a fairly regular thing for him and usually happens around twice a month. They do not give Ativan secondary to history of agitation with Ativan.patient is a poor historian. Patient states he feels sick. Detailed history is not possible from the patient. - Related Data Home Medications Medication Instructions Recorded Confirmed Alkadophilus 1 tab PO DAILY 09/29/18 09/29/18 Li-Zyme 1 tab PO BID 09/29/18 09/29/18 Mg-Zyme 1 tab PO DAILY@1500 09/29/18 09/29/18 Neuro 5 Htp Plus 1 tab PO BID 09/29/18 09/29/18 Allergies Allergy/AdvReac Type Severity Reaction Status Date / Time lorazepam [From Ativan] AdvReac aggressive Verified 09/29/18 16:43 behavior Review of Systems ROS Statement: Those systems with pertinent positive or pertinent negative responses have been documented in the HPI. ROS Other: All systems not noted in ROS Statement are negative. 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) hiatal hernia and thickening of esophagus, hx aspiration History of Any Multi-Drug Resistant Organisms: None Reported Additional Past Surgical History / Comment(s): shunt in brain, foot surgery Past Anesthesia/Blood Transfusion Reactions: No Reported Reaction Past Psychological History: No Psychological Hx Reported Smoking Status: Never smoker Past Alcohol Use History: None Reported Past Drug Use History: None Reported - Past Family History Mother Family Medical History: AFIB, Pulmonary Embolus General Exam Limitations: language barrier, altered mental status, physical limitation General appearance: alert Head exam: Present: normocephalic Eye exam: Present: normal appearance, PERRL, EOMI ENT exam: Present: normal oropharynx Neck exam: Present: normal inspection Respiratory exam: Present: normal lung sounds bilaterally Cardiovascular Exam: Present: tachycardia Expanded Peripheral pulses: 2+: Radial (R), Radial (L) GI/Abdominal exam: Present: soft. Absent: tenderness Extremities exam: Present: other (extremities mildly contracted) Neurological exam: Present: alert Expanded Motor strength exam: RUE: 4, LUE: 4, RLE: 4, LLE: 4 Psychiatric exam: Present: flat affect Skin exam: Present: normal color Course Vital Signs 05/13/20 05/13/20 05/13/20 17:00 17:01 17:25 Temperature 98.1 F Pulse Rate 165 H 168 H Pulse Rate [ 168 H Metal Moulder ] Respiratory 17 16 Rate Blood Pressure 125/73 124/82 O2 Sat by Pulse 95 95 Oximetry 05/13/20 05/13/20 05/13/20 18:01 18:19 18:49 Temperature Pulse Rate 165 H 170 H 140 H Pulse Rate [ Metal [place] ] Respiratory 18 18 18 Rate Blood Pressure 140/102 101/78 101/57 O2 Sat by Pulse 96 95 95 Oximetry 05/13/20 19:20 Temperature Pulse Rate 144 H Pulse Rate [ Metal [place]oulder ] Respiratory 19 Rate Blood Pressure 117/82 O2 Sat by Pulse 97 Oximetry EKG Findings - EKG Comments: EKG Findings:: atrial flutter with 2-1 conduction pattern. Rate 169. QRS 84. QT 274. QTC 459. Normal axis. Inferior Q waves. No acute ST change. Medical Decision Making - Medical Decision Making patient reevaluated. Patient and family updated on results and plan. Case was discussed with Dr. Dozier, who will admit covering for Dr. Zhu. - Lab Data Result diagrams: 05/13/20 17:58 05/13/20 17:25 Lab Results 05/13/20 05/13/20 05/13/20 Range/Units 17:25 17:25 17:58 WBC 10.9 H (3.8-10.6) k/uL RBC 5.26 (4.30-5.90) m/uL Hgb 15.3 (13.0-17.5) gm/dL Hct 49.4 (39.0-53.0) % MCV 93.8 (80.0-100.0) fL MCH 29.2 (25.0-35.0) pg MCHC 31.1 (31.0-37.0) g/dL RDW 13.6 (11.5-15.5) % Plt Count 299 (150-450) k/uL MPV 7.5 PT (9.0-12.0) sec INR (<1.2) APTT (22.0-30.0) sec Sodium 138 (137-145) mmol/L Potassium 4.7 (3.5-5.1) mmol/L Chloride 105 (98-107) mmol/L Carbon Dioxide 25 (22-30) mmol/L Anion Gap 8 mmol/L BUN 14 (9-20) mg/dL Creatinine 0.64 L (0.66-1.25) mg/dL Est GFR (CKD-EPI)AfAm >90 (>60 ml/min/1.73 sqM) Est GFR (CKD-EPI)NonAf >90 (>60 ml/min/1.73 sqM) Glucose 94 (74-99) mg/dL Calcium 9.4 (8.4-10.2) mg/dL Magnesium 1.9 (1.6-2.3) mg/dL Total Bilirubin 0.6 (0.2-1.3) mg/dL AST 26 (17-59) U/L ALT 15 (4-49) U/L Alkaline Phosphatase 90 (38-126) U/L Troponin I <0.012 (0.000-0.034) ng/mL Total Protein 7.7 (6.3-8.2) g/dL Albumin 4.2 (3.5-5.0) g/dL TSH 2.770 (0.465-4.680) mIU/L 05/13/20 Range/Units 17:58 WBC (3.8-10.6) k/uL RBC (4.30-5.90) m/uL Hgb (13.0-17.5) gm/dL Hct (39.0-53.0) % MCV (80.0-100.0) fL MCH (25.0-35.0) pg MCHC (31.0-37.0) g/dL RDW (11.5-15.5) % Plt Count (150-450) k/uL MPV PT 10.1 (9.0-12.0) sec INR 1.0 (<1.2) APTT 23.5 (22.0-30.0) sec Sodium (137-145) mmol/L Potassium (3.5-5.1) mmol/L Chloride (98-107) mmol/L Carbon Dioxide (22-30) mmol/L Anion Gap mmol/L BUN (9-20) mg/dL Creatinine (0.66-1.25) mg/dL Est GFR (CKD-EPI)AfAm (>60 ml/min/1.73 sqM) Est GFR (CKD-EPI)NonAf (>60 ml/min/1.73 sqM) Glucose (74-99) mg/dL Calcium (8.4-10.2) mg/dL Magnesium (1.6-2.3) mg/dL Total Bilirubin (0.2-1.3) mg/dL AST (17-59) U/L ALT (4-49) U/L Alkaline Phosphatase (38-126) U/L Troponin I (0.000-0.034) ng/mL Total Protein (6.3-8.2) g/dL Albumin (3.5-5.0) g/dL TSH (0.465-4.680) mIU/L - Radiology Data Radiology results: image reviewed (chest x-ray shows some increased interstitial mild density compared to previous. No failure or consolidation) Critical Care Time Critical Care Time: Yes Total Critical Care Time: 33 Disposition Clinical Impression: Atrial flutter with rapid ventricular response Disposition: ADMITTED IP TO THIS HOSP Is patient prescribed a controlled substance at d/c from ED?: No Referrals: Freeman Stone DO [Primary Care Provider] - 1-2 days Decision Time: 19:40
[2020-05-13] MEDS: DILTIAZEM 125 MG in SODIUM CHLORIDE 0.9% 100 ML IV SCH (17:33)
--- NOTE | 2020-05-13 17:52 | XR ---
EXAMINATION TYPE: XR chest 1V portable DATE OF EXAM: 05/13/2020 COMPARISON: 10/04/2017 HISTORY: Dysrhythmia TECHNIQUE: FINDINGS: There is slight coarsening of interstitial markings. There is no pulmonary consolidation or heart failure. There are chest leads. Bony thorax is intact. IMPRESSION: Increased interstitial mild density compared to old exam. No heart failure or pulmonary c onsolidation.
[2020-05-13 17:53] LABS: ALT 15 U/L (4-49); AST 26 U/L (17-59); African American GFR (CKD) >90 (>60 ml/min/1.73 sqM); Albumin 4.2 g/dL (3.5-5.0); Alkaline Phosphatase 90 U/L (38-126); Anion Gap 8 mmol/L; Blood Urea Nitrogen 14 mg/dL (9-20); Calcium 9.4 mg/dL (8.4-10.2); Carbon Dioxide 25 mmol/L (22-30); Chloride 105 mmol/L (98-107); Glucose 94 mg/dL (74-99); Magnesium 1.9 mg/dL (1.6-2.3); Non-African American GFR(CKD) >90 (>60 ml/min/1.73 sqM); Potassium 4.7 mmol/L (3.5-5.1); Sodium 138 mmol/L (137-145); Total Bilirubin 0.6 mg/dL (0.2-1.3); Total Protein 7.7 g/dL (6.3-8.2)
[2020-05-13 18:20] LABS: Partial Thromboplastin Time 23.5 sec (22.0-30.0); Prothrombin Time 10.1 sec (9.0-12.0)
[2020-05-13 18:46] LABS: HCT 49.4 % (39.0-53.0); HGB 15.3 gm/dL (13.0-17.5); MCH 29.2 pg (25.0-35.0); MCHC 31.1 g/dL (31.0-37.0); MCV 93.8 fL (80.0-100.0); Mean Platelet Volume 7.5; Platelet Count 299 k/uL (150-450); RBC 5.26 m/uL (4.30-5.90); RDW 13.6 % (11.5-15.5); WBC 10.9 k/uL (3.8-10.6)
[2020-05-13] MEDS ORDERED: HEPARIN SODIUM,PORCINE 5,000 UNIT/ML 1 ML VIAL IV ONE (19:41)
[2020-05-13] MEDS ORDERED: ASPIRIN 81 MG PO STA (19:41)
[2020-05-13 20:17] LABS: Eosinophils # (M) 0.33 k/uL (0-0.7); Lymphocytes # (M) 1.64 k/uL (1.0-4.8); Monocytes # (M) 0.65 k/uL (0-1.0); Neutrophils # (M) 8.28 k/uL (1.3-7.7); Neutrophils % (M) 76 %; Nucleated Red Blood Cells 0 /100 WBC (0-0); Total Cells Counted 100
[2020-05-13] MEDS ORDERED: MUPIROCIN 2% OINT 22 GM TUBE TOPICAL PRN (21:00)
[2020-05-13] MEDS ORDERED: NYSTATIN 100,000 UNIT/GM POWD 15 GM TOPICAL PRN (21:00)
[2020-05-13] MEDS ORDERED: MIDAZOLAM 5 MG/0.1 ML EA NOSTRIL PRN (21:00)
[2020-05-13] MEDS ORDERED: ASPIRIN 81 MG PO SCH (21:00)
[2020-05-13] MEDS: HEPARIN SOD,PORK IN 0.45% NACL 25,000 UNIT in 0.45% NACL 1 250ML.BAG IV SCH (21:01)
--- NOTE | 2020-05-13 21:19 | P.HPIM ---
History of Present Illness H&P Date: 05/13/20 Chief Complaint: Chest pain, A. fib/A flutter, cerebral palsy 55-year-old male one of Dr. 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 Symptoms has been happening lost 24 hours become much worse. Through the the ride by EMS patient had severe tachycardia pulse rate running between 160- 180. Patient had witness seizure lasting about 30 seconds and was all mostly before over 2 minutes afterward. Apparently patient has seizure activity more frequent on regular basis. Patient was started on Cardizem drip we'll consult cardiology was start him on heparin drip as well [place] [facility] with the the sister and answer all her question what patient still in the ER before his admission. Troponin was negative. Review of Systems CONSTITUTIONAL: Well-developed no acute respiratory distress. EYES: No icterus sclerae, no conjunctivitis. EARS, NOSE, MOUTH, THROAT, and FACE: No sore throat, lymphadenopathy, carotid bruits or deformity. RESPIRATORY: Mild shortness of breath wheezes. CARDIOVASCULAR: Positive chest pain, positive Palpitation with PND, and Orthopnea, GASTROINTESTINAL: No Abd pain, Nausea or vomiting, no Diarrhea or constipation, No GI Bleed, no distention or masses. GENITOURINARY: Negative for Hematuria or UTI, no kidney stones. INTEGUMENT/BREAST: Negative for any muscular injury with mild osteoarthritis.. HEMATOLOGIC/LYMPHATIC: Negative for bleed or purpura. MUSCULOSKELTAL: Cerebral palsy with severe atrophy of the lower part of the body. NEURLOGICAL: No LOC, history of cerebral palsy with generalized weakness specially of the lower extremity with mild atrophy history of seizure and recurrent episode with seizure today. BEHAVIORAL/PSYCH: Negative. ENDOCRINE: Negative. 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) hiatal hernia and thickening of esophagus, hx aspiration History of Any Multi-Drug Resistant Organisms: None Reported Additional Past Surgical History / Comment(s): shunt in brain, foot surgery Past Anesthesia/Blood Transfusion Reactions: No Reported Reaction Past Psychological History: No Psychological Hx Reported Smoking Status: Never smoker Past Alcohol Use History: None Reported Past Drug Use History: None Reported - Past Family History Mother Family Medical History: AFIB, Pulmonary Embolus Medications and Allergies Home Medications Medication Instructions Recorded Confirmed Type Aspirin [[place] Aspirin EC] 81 mg PO HS@209905/13/20 05/13/20 History Calcium Carbonate [Calcium] 300 mg PO HS@209905/13/20 05/13/20 History Docusate [Colace] 100 mg PO HS@209905/13/20 05/13/20 History Lacosamide [Vimpat] 100 mg PO BID@0800,209905/13/20 05/13/20 History Midazolam [Nayzilam] 1 spray INTRANASAL DIRECTED PRN 05/13/20 05/13/20 History Mupirocin [Mupirocin 2%] 1 applic TOPICAL BID PRN 05/13/20 05/13/20 History Nystatin 100,000 Unit/gm Powd 1 applic TOPICAL BID PRN 05/13/20 05/13/20 History [Mycostatin Powder] tiZANidine HCL 2 mg PO BID@0800,209905/13/20 05/13/20 History Allergies Allergy/AdvReac Type Severity Reaction Status Date / Time lorazepam [From Ativan] AdvReac aggressive Verified 05/13/20 20:34 behavior Physical Exam Vitals: Vital Signs Temp Pulse Pulse Resp BP Pulse Ox 05/13/20 19:20 144 H 19 117/82 97 05/13/20 18:49 140 H 18 101/57 95 05/13/20 18:19 170 H 18 101/78 95 05/13/20 18:01 165 H 18 140/102 96 05/13/20 17:25 168 H 16 124/82 95 05/13/20 17:01 168 H 05/13/20 17:00 98.1 F 165 H 17 125/73 95 Intake and Output 05/13/20 05/13/20 05/13/20 06:59 14:59 22:59 Intake Total 9.875 Balance 9.875 Intake: Intake, IV Titration 9.875 Amount Diltiazem 125 mg In 9.875 Sodium Chloride 0.9% 100 ml @ 5 MG/HR 5 mls/hr IV .Q24H [facility] Rx#:[id number] Other: Weight 75 kg General Appearance: Alert, Neto confuse no distress, appears stated age. Neck HEENT: Supple, no lymphadenopathy, no thyroid enlargement, no carotid bruits. Lungs: Decreased breath some bilateral with final high no crackles or wheezes. Chest Wall: Decrease expansion with deep inspiration no tenderness and no deformity was found on exam, no costochondral pain or discomfort. Heart: Irregular rate and rhythm, S1, S2 positive history with no murmur. Back: Symmetric, no curvature, ROM normal, no CVA tenderness. Abdomen: Soft, non-tender, bowel sounds active all four quadrants, no masses, no organomegaly. Extremities: Extremities normal, atraumatic, no cyanosis or edema. Pulses: 2+ and symmetric. Skin: Skin color, texture, tugor normal, no rashes or lesions. Neurologic: Alert oriented slight confusion cranial nerves II through XII intact, positive significant weakness with multiple loss of the lower extremity stronger now upper part of the body. Results CBC & Chem 7: 05/13/20 17:58 05/13/20 17:25 Labs: Abnormal Lab Results - Last 24 Hours (Table) 05/13/20 05/13/20 Range/Units 17:25 17:58 WBC 10.9 H (3.8-10.6) k/uL Neutrophils # (Manual) 8.28 H (1.3-7.7) k/uL Creatinine 0.64 L (0.66-1.25) mg/dL Thrombosis Risk Factor Assmnt - DVT/VTE Prophylaxis DVT/VTE Prophylaxis: Pharmacologic Prophylaxis ordered, Mechanical Prophylaxis ordered Assessment and Plan Assessment: 1 acute onset of A. fib with RVR: Pulse rates running over 100 6280 beats per minutes, patient was started on Cardizem drip we'll consult cardiology heparin drip or anticoagulation depending on patient responded continue heparin drip for now until the morning when he sees cardiology and if patient is going to still on anticoagulation long-term can be on one of the new oral agent. 2 chest pain and angina: Most likely aggravated by the A. fib with RVR with lower perfusion patient troponin has been negative so far echocardiogram was order patient seen cardiology might require stress test in the near future. History of cerebral palsy: With hydrocephalus post shunt patient has been doing well apparently seen his neurologist regular basis. 4 history of seizure with no seizure activity lately still on benzodiazepine nasal spray along with Vimpat and if needed lorazepam, done IV. 5 GI prophylaxis: Patient be on Pepcid 20 mg daily. 6 DVT prophylaxis: Patient be on anticoagulation. CODE STATUS: Full code. Admit patient to the inpatient service for more than 2 night stay.
[2020-05-13] MEDS: LACOSAMIDE 50 MG TABLET PO SCH (21:50)
[2020-05-13] MEDS: DOCUSATE 100 MG CAP PO SCH (21:51)
[2020-05-13] MEDS: tiZANidine 4 MG TAB PO SCH (21:51)
[2020-05-13] MEDS: CALCIUM CARBONATE 500 MG CHEWABLE PO SCH (21:53)
[2020-05-14] MEDS ORDERED: HEPARIN SODIUM,PORCINE 5,000 UNIT/ML 1 ML VIAL IV STA (03:50)
[2020-05-14 08:50] LABS: ALT 15 U/L (4-49); African American GFR (CKD) >90 (>60 ml/min/1.73 sqM); Albumin 4.1 g/dL (3.5-5.0); Anion Gap 8 mmol/L; Blood Urea Nitrogen 9 mg/dL (9-20); Calcium 9.1 mg/dL (8.4-10.2); Carbon Dioxide 23 mmol/L (22-30); Chloride 107 mmol/L (98-107); Cholesterol 217 mg/dL (<200); Glucose 93 mg/dL (74-99); HDL Cholesterol 41 mg/dL (40-60); LDL Cholesterol,Calculated 155 mg/dL (0-99); Non-African American GFR(CKD) >90 (>60 ml/min/1.73 sqM); Sodium 138 mmol/L (137-145); Total Protein 7.6 g/dL (6.3-8.2); Triglycerides 106 mg/dL (<150)
[2020-05-14 08:51] LABS: AST 28 U/L (17-59); Alkaline Phosphatase 94 U/L (38-126); Potassium 4.5 mmol/L (3.5-5.1)
[2020-05-14] MEDS ORDERED: ASPIRIN 325 MG TAB PO SCH (09:00)
[2020-05-14 09:07] LABS: HCT 46.3 % (39.0-53.0); MCH 30.2 pg (25.0-35.0); MCHC 32.4 g/dL (31.0-37.0); Mean Platelet Volume 7.9; Platelet Count 325 k/uL (150-450); RBC 4.98 m/uL (4.30-5.90); RDW 13.7 % (11.5-15.5); WBC 8.7 k/uL (3.8-10.6)
[2020-05-14] MEDS: tiZANidine 4 MG TAB PO SCH ×2 (09:35→20:12)
[2020-05-14] MEDS: FAMOTIDINE 20 MG TAB PO SCH (09:36)
[2020-05-14] MEDS: LACOSAMIDE 50 MG TABLET PO SCH ×2 (09:36→20:14)
[2020-05-14 09:41] VITALS: RESP 20
--- NOTE | 2020-05-14 10:35 | P.PN ---
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 Symptoms has been happening lost 24 hours become much worse. Through the the ride by EMS patient had severe tachycardia pulse rate running between 160- 180. Patient had witness seizure lasting about 30 seconds and was all mostly before over 2 minutes afterward. Apparently patient has seizure activity more frequent on regular basis. Patient was started on Cardizem drip we'll consult cardiology was start him on heparin drip as well at [facility] with the the sister and answer all her question what patient still in the ER before his admission. Troponin was negative. 05/14: Patient is a found resting in bed complaining of being upset that his family is not at his bedside. Patient states that he is crying. Like to go home. Patient denies any chest pain or difficulty breathing at this time. Patient remains afebrile heart rate 101, respirations 20, blood pressure 140/92 pulse ox 97% on room air. W BC 0.7, hemoglobin 15.0, potassium 4.5, BUN 9, creatinine 0.59 Review of systems: CONSTITUTIONAL: Well-developed no acute respiratory distress. EYES: No icterus sclerae, no conjunctivitis. EARS, NOSE, MOUTH, THROAT, and FACE: No sore throat, lymphadenopathy, carotid bruits or deformity. RESPIRATORY: Mild shortness of breath wheezes. CARDIOVASCULAR: Positive chest pain, positive Palpitation with PND, and Orthopnea, GASTROINTESTINAL: No Abd pain, Nausea or vomiting, no Diarrhea or constipation, No GI Bleed, no distention or masses. GENITOURINARY: Negative for Hematuria or UTI, no kidney stones. INTEGUMENT/BREAST: Negative for any muscular injury with mild osteoarthritis.. HEMATOLOGIC/LYMPHATIC: Negative for bleed or purpura. MUSCULOSKELTAL: Cerebral palsy with severe atrophy of the lower part of the body. NEURLOGICAL: No LOC, history of cerebral palsy with generalized weakness specially of the lower extremity with mild atrophy history of seizure and recurrent episode with seizure today. BEHAVIORAL/PSYCH: Negative. ENDOCRINE: Negative. Physical exam: General Appearance: Alert, Neto confuse no distress, appears stated age. Neck HEENT: Supple, no lymphadenopathy, no thyroid enlargement, no carotid bruits. Lungs: Decreased breath some bilateral with final high no crackles or wheezes. Chest Wall: Decrease expansion with deep inspiration no tenderness and no deformity was found on exam, no costochondral pain or discomfort. Heart: Irregular rate and rhythm, S1, S2 positive history with no murmur. Back: Symmetric, no curvature, ROM normal, no CVA tenderness. Abdomen: Soft, non-tender, bowel sounds active all four quadrants, no masses, no organomegaly. Extremities: Extremities normal, atraumatic, no cyanosis or edema. Pulses: 2+ and symmetric. Skin: Skin color, texture, tugor normal, no rashes or lesions. Neurologic: Alert oriented slight confusion cranial nerves II through XII intact, positive significant weakness with multiple loss of the lower extremity and right-sided upper extremity weakness able to utilize left upper extremity with weakness Assessment/plan: 1 acute onset of A. fib with RVR: Pulse rates running over 100 6280 beats per minutes, patient was started on Cardizem drip we'll consult cardiology heparin drip or anticoagulation depending on patient responded continue heparin drip for now until the morning when he sees cardiology and if patient is going to still on anticoagulation long-term can be on one of the new oral agent. Metoprolol 25 mg twice a day. Echocardiogram ordered 2 chest pain and angina: Most likely aggravated by the A. fib with RVR with lower perfusion patient troponin has been negative so far echocardiogram was order patient seen cardiology might require stress test in the near future. History of cerebral palsy: With hydrocephalus post shunt patient has been doing well apparently seen his neurologist regular basis. 4 history of seizure with no seizure activity lately still on benzodiazepine jorge al spray along with Vimpat and if needed lorazepam, done IV. 5 GI prophylaxis: Patient be on Pepcid 20 mg daily. 6 DVT prophylaxis: Patient be on anticoagulation. CODE STATUS: Full code. Admit patient to the inpatient service for more than 2 night stay. Objective - Vital Signs Vital signs: Vital Signs Temp 98.2 F 05/14/20 08:00 Pulse 101 H 05/14/20 08:00 Resp 20 05/14/20 08:00 BP 140/92 05/14/20 08:00 Pulse Ox 97 05/14/20 08:00 Intake & Output 05/13/20 05/14/20 05/14/20 18:59 06:59 18:59 Intake Total 9.875 302.35 360 Output Total 0 Balance 9.875 302.35 360 Weight 75 kg 79.6 kg Intake: Intake, IV Titration 9.875 52.35 Amount Diltiazem 125 mg In 9.875 Sodium Chloride 0.9% 100 ml @ 5 MG/HR 5 mls/hr IV .Q24H [facility] Rx#:[id number] Heparin Sod,Pork in 0.45% 52.35 NaCl 25,000 unit In 0.45 % NaCl 1 250ml.bag @ 12 UNITS/KG/HR 9 mls/hr IV . Q24H [facility] Rx#:[id number] Oral 250 360 Output: Urine 0 Stool 0 Other: # Voids 0 0 # Bowel Movements 0 - Labs CBC & Chem 7: 05/14/20 07:59 05/14/20 07:59 Labs: Abnormal Lab Results - Last 24 Hours (Table) 05/13/20 05/13/20 05/14/20 Range/Units 17:25 17:58 07:59 WBC 10.9 H (3.8-10.6) k/uL Neutrophils # (Manual) 8.28 H (1.3-7.7) k/uL APTT (22.0-30.0) sec Creatinine 0.64 L 0.59 L (0.66-1.25) mg/dL Cholesterol 217 H (<200) mg/dL LDL Cholesterol, Calc 155 H (0-99) mg/dL 05/14/20 Range/Units 07:59 WBC (3.8-10.6) k/uL Neutrophils # (Manual) (1.3-7.7) k/uL APTT 71.4 H (22.0-30.0) sec Creatinine (0.66-1.25) mg/dL Cholesterol (<200) mg/dL LDL Cholesterol, Calc (0-99) mg/dL
--- NOTE | 2020-05-14 11:27 | P.CRDCN ---
History of Present Illness Consult date: 05/14/20 Consult reason: atrial flutter Chief complaint: Heart racing, chest discomfort History of present illness: This is a 55-year-old gentleman with history of cerebral palsy, history of hydrocephalus with prior stenting, history of aspiration in the past with questionable Azul's esophagus, history of seizures, was brought to the hospital because he was complaining of heaviness and severe palpitations in his chest. Most of the history was obtained from the medical record. His initial EKG showed atrial flutter with a rapid ventricular response. Patient also had a witnessed seizure lasting about 30 seconds while in the EMS. Chest x-ray shows increased interstitial density compared with old exam. No evidence of heart failure or pulmonary consolidation. His blood pressure 140/90, heart rate this morning is in the 80s to 90s, he continues to be in an atrial flutter, 97% on room air. Laboratory data was reviewed, white blood cell count 8.7, hemoglobin 15, platelet count 325. Sodium 138, potassium 4.5, BUN 9, creatinine 0.5. Troponins were negative 3, TSH 2.7, cholesterol 217, triglycerides 106, LDL 155, HDL 41. The patient was given a full aspirin in the emergency room and initiated on IV Cardizem, he is also currently on IV heparin and by mouth metoprolol. At the time of my examination this morning, the patient appears comfortable, he is mostly nonverbal, contracted, currently undergoing an echocardiogram with Doppler study. Past Medical History Past Medical History: Atrial Fibrillation, Seizure Disorder Additional Past Medical History / Comment(s): cerebral palsy, hydrocephalus with shunt, hiatal hernia and thickening of esophagus, hx aspiration History of Any Multi-Drug Resistant Organisms: None Reported Additional Past Surgical History / Comment(s): shunt in brain, foot surgery Past Anesthesia/Blood Transfusion Reactions: No Reported Reaction Past Psychological History: No Psychological Hx Reported Additional Psychological History / Comment(s): cognitively and intellectually im paired, compulsive disorder, when agitated bites self,minimally verbal Smoking Status: Never smoker Past Alcohol Use History: None Reported Past Drug Use History: None Reported - Past Family History Mother Family Medical History: AFIB, Pulmonary Embolus Medications and Allergies Home Medications Medication Instructions Recorded Confirmed Type Aspirin [[place] Aspirin EC] 81 mg PO HS@2100 05/13/20 05/13/20 History Calcium Carbonate [Calcium] 300 mg PO HS@2100 11/13/20 11/13/20 History Docusate [Colace] 100 mg PO HS@209905/13/20 05/13/20 History Lacosamide [Vimpat] 100 mg PO BID@0800,209905/13/20 05/13/20 History Midazolam [Nayzilam] 1 spray INTRANASAL DIRECTED PRN 05/13/20 05/13/20 History Mupirocin [Mupirocin 2%] 1 applic TOPICAL BID PRN 05/13/20 05/13/20 History Nystatin 100,000 Unit/gm Powd 1 applic TOPICAL BID PRN 05/13/20 05/13/20 History [Mycostatin Powder] tiZANidine HCL 2 mg PO BID@0800,209905/13/20 05/13/20 History Allergies Allergy/AdvReac Type Severity Reaction Status Date / Time lorazepam [From Ativan] AdvReac aggressive Verified 05/13/20 20:34 behavior Physical Exam Vitals: Vital Signs Temp Pulse Pulse Resp BP BP Pulse Ox 05/14/20 08:00 98.2 F 101 H 20 140/92 97 05/14/20 04:00 97.9 F 85 16 144/62 98 05/14/20 00:00 97.9 F 97 16 154/67 98 05/13/20 22:00 98.1 F 96 16 154/70 99 05/13/20 19:20 144 H 19 117/82 97 05/13/20 18:49 140 H 18 101/57 95 05/13/20 18:19 170 H 18 101/78 95 05/13/20 18:01 165 H 18 140/102 96 05/13/20 17:25 168 H 16 124/82 95 05/13/20 17:01 168 H 05/13/20 17:00 98.1 F 165 H 17 125/73 95 Intake and Output 05/13/20 05/14/20 05/14/20 22:59 06:59 14:59 Intake Total 9.875 302.35 360 Output Total 0 Balance 9.875 302.35 360 Intake: Intake, IV Titration 9.875 52.35 Amount Diltiazem 125 mg In 9.875 Sodium Chloride 0.9% 100 ml @ 5 MG/HR 5 mls/hr IV .Q24H [facility] Rx#:[id number] Heparin Sod,Pork in 0.45% 52.35 NaCl 25,000 unit In 0.45 % NaCl 1 250ml.bag @ 12 UNITS/KG/HR 9 mls/hr IV . Q24H [facility] Rx#:[id number] Oral 250 360 Output: Urine 0 Stool 0 Other: # Voids 0 0 # Bowel Movements 0 Weight 75 kg 79.6 kg PHYSICAL EXAMINATION: GENERAL: 55-year-old gentleman in no acute distress at the time of my examination HEENT: Head is atraumatic, normocephalic. Pupils equal, round. Sclera anicteric. Conjunctiva are clear. Mucous membranes of the mouth are moist. Neck is supple. There is no elevated jugular venous pressure. No carotid bruit is heard. HEART EXAMINATION: Heart S1 and S2 irregularly irregular CHEST EXAMINATION: Lungs are clear with diminished air entry to the bases ABDOMEN: Soft, nontender. Bowel sounds are heard. No organomegaly noted. EXTREMITIES: 2+ peripheral pulses with no evidence of peripheral edema and no calf tenderness noted. NEUROLOGIC patient is awake, alert and oriented 1, contracted,. . Results 05/14/20 07:59 05/14/20 07:59 Cardiac Enzymes 05/13/20 05/13/20 05/13/20 Range/Units 17:25 17:25 20:35 AST 26 (17-59) U/L Troponin I <0.012 <0.012 (0.000-0.034) ng/mL 05/13/20 05/14/20 Range/Units 23:27 07:59 AST 28 (17-59) U/L Troponin I <0.012 (0.000-0.034) ng/mL Coagulation 05/13/20 05/14/20 05/14/20 Range/Units 17:58 01:28 07:59 PT 10.1 (9.0-12.0) sec APTT 23.5 24.5 71.4 H (22.0-30.0) sec Lipids 05/14/20 Range/Units 07:59 Triglycerides 106 (<150) mg/dL Cholesterol 217 H (<200) mg/dL HDL Cholesterol 41 (40-60) mg/dL CBC 05/13/20 05/14/20 Range/Units 17:58 07:59 WBC 10.9 H 8.7 (3.8-10.6) k/uL RBC 5.26 4.98 (4.30-5.90) m/uL Hgb 15.3 15.0 (13.0-17.5) gm/dL Hct 49.4 46.3 (39.0-53.0) % Plt Count 299 325 (150-450) k/uL Comprehensive Metabolic Panel 05/13/20 05/14/20 Range/Units 17:25 07:59 Sodium 138 138 (137-145) mmol/L Potassium 4.7 4.5 (3.5-5.1) mmol/L Chloride 105 107 (98-107) mmol/L Carbon Dioxide 25 23 (22-30) mmol/L BUN 14 9 (9-20) mg/dL Creatinine 0.64 L 0.59 L (0.66-1.25) mg/dL Glucose 94 93 (74-99) mg/dL Calcium 9.4 9.1 (8.4-10.2) mg/dL AST 26 28 (17-59) U/L ALT 15 15 (4-49) U/L Alkaline Phosphatase 90 94 (38-126) U/L Total Protein 7.7 7.6 (6.3-8.2) g/dL Albumin 4.2 4.1 (3.5-5.0) g/dL Current Medications Generic Name Dose Route Start Last Admin Trade Name Freq PRN Reason Stop Dose Admin Aspirin 325 mg 05/14/20 09:00 05/14/20 09:35 Aspirin 325 Mg Tab PO 325 mg DAILY [facility] Administration Calcium Carbonate/Glycine 500 mg 05/13/20 21:00 05/13/20 21:53 Calcium Carbonate 500 Mg Chewable PO 500 mg HS@2100 [facility] Administration Docusate Sodium 100 mg 05/13/20 21:00 05/13/20 21:51 Docusate 100 Mg Cap PO 100 mg HS@2100 [facility] Administration Famotidine 20 mg 05/14/20 09:00 05/14/20 09:36 Famotidine 20 Mg Tab PO 20 mg DAILY [facility] Administration Diltiazem HCl 125 mg/ Sodium 125 mls @ 5 mls/hr 05/13/20 17:15 05/13/20 18:51 Chloride IV 12.5 mg/hr .Q24H [facility] 12.5 mls/hr Infusion 5 MG/HR Heparin Sodium/Sodium Chloride 250 mls @ 9 mls/hr 05/13/20 19:45 05/14/20 02:50 25,000 unit/ Sodium Chloride IV 15 units/kg/hr .Q24H [facility] 11.25 mls/hr Titration Protocol 12 UNITS/KG/HR Lacosamide 100 mg 05/13/20 21:00 05/14/20 09:36 Lacosamide 50 Mg Tablet PO 100 mg BID@0800,2100 [facility] Administration Metoprolol Tartrate 25 mg 05/14/20 09:45 Metoprolol Tartrate 25 Mg Tab PO BID [facility] Mupirocin 1 applic 05/13/20 21:00 Mupirocin 2% Oint 22 Gm Tube TOPICAL BID PRN skin irritations on hands Non-Formulary Medication 1 spray 05/13/20 21:00 Midazolam [Nayzilam] EA NOSTRIL DIRECTED PRN Seizures Nystatin 1 applic 05/13/20 21:00 Nystatin 100,000 Unit/Gm Powd 15 Gm TOPICAL BID PRN Rash Tizanidine HCl 2 mg 05/13/20 21:00 05/14/20 09:35 Tizanidine 4 Mg Tab PO 2 mg BID@0800,2100 [facility] Administration Intake and Output 05/13/20 05/14/20 05/14/20 22:59 06:59 14:59 Intake Total 9.875 302.35 360 Output Total 0 Balance 9.875 302.35 360 Intake: Intake, IV Titration 9.875 52.35 Amount Diltiazem 125 mg In 9.875 Sodium Chloride 0.9% 100 ml @ 5 MG/HR 5 mls/hr IV .Q24H [facility] Rx#:[id number] Heparin Sod,Pork in 0.45% 52.35 NaCl 25,000 unit In 0.45 % NaCl 1 250ml.bag @ 12 UNITS/KG/HR 9 mls/hr IV . Q24H [facility] Rx#:[id number] Oral 250 360 Output: Urine 0 Stool 0 Other: # Voids 0 0 # Bowel Movements 0 Weight 75 kg 79.6 kg 05/14/20 07:59 05/14/20 07:59 EKG Interpretations (text) Initial EKG showed atrial flutter with a rapid ventricular response, typical Assessment and Plan Plan: Assessment and plan #1 typical atrial flutter with rapid ventricular response #2 chest pain, likely secondary to A. fib flutter with rapid ventricular response. Troponins negative 3. Echocardiogram with Doppler study in progress #3 history of cerebral palsy #4 history of seizures Plan TSH level came back to be normal, echocardiogram with Doppler study is being performed we will review the results of that. We will look into oral anticoagulation. Increase dose of beta tata and stop the IV Cardizem. DNP note has been reviewed, I agree with a documented findings and plan of care. Patient was seen and examined.
[2020-05-14] MEDS: METOPROLOL TARTRATE 25 MG TAB PO SCH ×2 (12:30→20:14)
[2020-05-14 12:48] LABS: Eosinophils # (M) 0.09 k/uL (0-0.7); Lymphocytes # (M) 1.13 k/uL (1.0-4.8); Monocytes # (M) 0.26 k/uL (0-1.0); Neutrophils # (M) 7.22 k/uL (1.3-7.7); Neutrophils % (M) 83 %; Nucleated Red Blood Cells 0 /100 WBC (0-0); Total Cells Counted 100
--- NOTE | 2020-05-14 14:50 | ECHOF ---
Referral Reason:Atrial flutter with RVR MEASUREMENTS -------- HEIGHT: 167.6 cm WEIGHT: 79.4 kg BP: 144/62 RVIDd: 2.9 cm (< 3.3) IVSd: 1.0 cm (0.6 - 1.1) LVIDd: 3.8 cm (3.9 - 5.3) LVPWd: 1.2 cm (0.6 - 1.1) IVSs: 1.3 cm LVIDs: 2.8 cm LVPWs: 1.6 cm LA Diam: 3.2 cm (2.7 - 3.8) Ao Diam: 3.2 cm (2.0 - 3.7) AV Cusp: 2.4 cm (1.5 - 2.6) MV EXCURSION: 19.436 mm (> 18.000) MV EF SLOPE: 146 mm/s (70 - 150) EPSS: 0.9 cm RAP: 5.00 mmHg RVSP: 22.55 mmHg FINDINGS -------- The rhythm appears to be atrial flutter. This was a technically adequate study. The left ventricular size is normal. There is borderline concentric left ventricular hypertrophy. Overall left ventricular systolic function is mildly impaired with, an EF between 45 - 50 %. The right ventricle is normal in size. The left atrial size is normal. The right atrium is normal in size. Interatrial and interventricular septum intact. The aortic valve is trileaflet and appears structurally normal. The mitral valve is normal. Mild tricuspid regurgitation present. Right ventricular systolic pressure is normal at < 35 mmHg. The pulmonic valve was not well visualized. The aortic root size is normal. IVC Not well visulized. There is no pericardial effusion. CONCLUSIONS -------- 1. The left ventricular size is normal. 2. There is borderline concentric left ventricular hypertrophy. 3. Overall left ventricular systolic function is mildly impaired with, an EF between 45 - 50 %. 4. Mild tricuspid regurgitation present. 5. There is no pericardial effusion. MILITARY COOK: Roxie Titus [facility]
[2020-05-14] MEDS: DOCUSATE 100 MG CAP PO SCH (20:14)
[2020-05-14] MEDS: CALCIUM CARBONATE 500 MG CHEWABLE PO SCH (20:15)
[2020-05-15] MEDS: HEPARIN SOD,PORK IN 0.45% NACL 25,000 UNIT in 0.45% NACL 1 250ML.BAG IV SCH (06:30)
[2020-05-15] MEDS: DILTIAZEM 125 MG in SODIUM CHLORIDE 0.9% 100 ML IV SCH (06:32)
[2020-05-15 06:59] LABS: Basophils # (A) 0.1 k/uL (0-0.2); Basophils % (A) 1 %; Eosinophils # (A) 0.4 k/uL (0-0.7); Eosinophils % (A) 4 %; HGB 15.3 gm/dL (13.0-17.5); Lymphocytes # (A) 2.2 k/uL (1.0-4.8); Lymphocytes % (A) 25 %; MCH 30.1 pg (25.0-35.0); MCHC 31.9 g/dL (31.0-37.0); MCV 94.4 fL (80.0-100.0); Mean Platelet Volume 8.3; Monocytes # (A) 0.8 k/uL (0-1.0); Monocytes % (A) 9 %; Neutrophils % (A) 57 %; Platelet Count 315 k/uL (150-450); RBC 5.09 m/uL (4.30-5.90); RDW 13.6 % (11.5-15.5); WBC 8.9 k/uL (3.8-10.6)
[2020-05-15 07:17] LABS: African American GFR (CKD) >90 (>60 ml/min/1.73 sqM); Anion Gap 7 mmol/L; Blood Urea Nitrogen 12 mg/dL (9-20); Calcium 9.3 mg/dL (8.4-10.2); Carbon Dioxide 24 mmol/L (22-30); Chloride 106 mmol/L (98-107); Glucose 83 mg/dL (74-99); Non-African American GFR(CKD) >90 (>60 ml/min/1.73 sqM); Potassium 4.1 mmol/L (3.5-5.1); Sodium 137 mmol/L (137-145)
[2020-05-15] MEDS ORDERED: APIXABAN 5 MG TAB PO SCH (09:00)
[2020-05-15] MEDS ORDERED: METOPROLOL TARTRATE 50 MG TAB PO SCH (09:00)
[2020-05-15] MEDS: tiZANidine 4 MG TAB PO SCH (09:15)
[2020-05-15] MEDS: LACOSAMIDE 50 MG TABLET PO SCH (09:15)
[2020-05-15] MEDS: FAMOTIDINE 20 MG TAB PO SCH (09:20)
[2020-05-15 09:38] VITALS: TEMP 98.2
--- NOTE | 2020-05-15 10:40 | P.PN ---
Subjective Progress Note Date: 05/15/20 This is a 55-year-old gentleman with history of cerebral palsy, history of hydrocephalus with prior stenting, history of aspiration in the past with questionable Azul's esophagus, history of seizures, was brought to the hospital because he was complaining of heaviness and severe palpitations in his chest. Most of the history was obtained from the medical record. His initial EKG showed atrial flutter with a rapid ventricular response. Patient also had a witnessed seizure lasting about 30 seconds while in the EMS. Chest x-ray shows increased interstitial density compared with old exam. No evidence of heart failure or pulmonary consolidation. His blood pressure 140/90, heart rate this morning is in the 80s to 90s, he continues to be in an atrial flutter, 97% on room air. Laboratory data was reviewed, white blood cell count 8.7, hemoglobin 15, platelet count 325. Sodium 138, potassium 4.5, BUN 9, creatinine 0.5. Troponins were negative 3, TSH 2.7, cholesterol 217, triglycerides 106, LDL 155, HDL 41. The patient was given a full aspirin in the emergency room and initiated on IV Cardizem, he is also currently on IV heparin and by mouth metoprolol. At the time of my examination this morning, the patient appears comfortable, he is mostly nonverbal, contracted, currently undergoing an echocardiogram with Doppler study. 05/15/2020 Patient seen and examined this morning, quite emotional, once to be discharged home. Continues to be in atrial fibrillation, at times the heart rate jumps up into the 07/21/1929 range, usually when he is upset and agitated. We will di scontinue the IV heparin today and start Eliquis, increase the dose of beta tata. His echo showed an ejection fraction of 45%. Blood pressure 144/80, heart rate in the 90s, 96% on room air. White blood cell count 8.9, hemoglobin 15.3, platelet count 3:15. Sodium 137, potassium 4.1, BUN 12, creatinine 0.6. Objective - Vital Signs Vital signs: Vital Signs Temp 98.2 F 05/15/20 08:00 Pulse 115 H 05/15/20 08:00 Resp 20 05/15/20 08:00 BP 144/87 05/15/20 08:00 Pulse Ox 96 11/15/20 08:00 Intake & Output 05/14/20 05/15/20 05/15/20 18:59 06:59 18:59 Intake Total 1239.450 38.2 381 Output Total 0 Balance 1239.450 38.2 381 Weight 75.2 kg Intake: Intake, IV Titration 159.450 38.2 21 Amount Heparin Sod,Pork in 0.45% 159.450 38.2 21 NaCl 25,000 unit In 0.45 % NaCl 1 250ml.bag @ 12 UNITS/KG/HR 9 mls/hr IV . Q24H [facility] Rx#:[id number] Oral 1080 360 Output: Urine 0 Stool 0 Other: # Voids 1 1 # Bowel Movements 0 1 - Exam PHYSICAL EXAMINATION: GENERAL: 55-year-old gentleman in no acute distress at the time of my examination HEENT: Head is atraumatic, normocephalic. Pupils equal, round. Sclera anicteric. Conjunctiva are clear. Mucous membranes of the mouth are moist. Neck is supple. There is no elevated jugular venous pressure. No carotid bruit is heard. HEART EXAMINATION: Heart S1 and S2 irregularly irregular CHEST EXAMINATION: Lungs are clear with diminished air entry to the bases ABDOMEN: Soft, nontender. Bowel sounds are heard. No organomegaly noted. EXTREMITIES: 2+ peripheral pulses with no evidence of peripheral edema and no c skilled nursing tenderness noted. NEUROLOGIC patient is awake, alert and oriented 1, contracted,. . - Labs CBC & Chem 7: 05/15/20 05:35 05/15/20 05:35 Labs: Abnormal Lab Results - Last 24 Hours (Table) 05/14/20 05/14/20 05/15/20 Range/Units 13:50 20:01 05:35 APTT 105.1 H* 75.2 H 111.6 H* (22.0-30.0) sec Assessment and Plan Plan: Assessment and plan #1 typical atrial flutter with rapid ventricular response #2 chest pain, likely secondary to A. fib flutter with rapid ventricular response. Troponins negative 3. Echocardiogram with Doppler study in progress #3 history of cerebral palsy #4 history of seizures Plan TSH level came back to be normal, echocardiogram with Doppler study revealed an ejection fraction of 45%. We will increase the dose of beta tata, discon tinue heparin and start the patient on Eliquis. From our perspective he may be able to be discharged. We'll make a follow-up appointment in the office post discharge. \ DNP note has been reviewed, I agree with a documented findings and plan of care. Patient was seen and examined.
--- NOTE | 2020-05-15 11:00 | P.DS ---
Providers Date of admission: 05/13/20 19:41 Attending physician: Ryan Dozier Consults: 05/13/20 19:41 Consult Physician Urgent Consulting Provider: Ross Falk Consult Reason/Comments: atrial flutter with RVR Do you want consulting provider notified?: Yes Primary care physician: Freeman Stone [facility] Course: 55-year-old male one of Dr. 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 Symptoms has been happening lost 24 hours become much worse. Through the the ride by EMS patient had severe tachycardia pulse rate running between 160- 180. Patient had witness seizure lasting about 30 seconds and was all mostly before over 2 minutes afterward. Apparently patient has seizure activity more frequent on regular basis. Patient was started on Cardizem drip we'll consult cardiology was start him on heparin drip as well at [place] with the the sister and answer all her question what patient still in the ER before his admission. Troponin was negative. 05/14: Patient is a found resting in bed complaining of being upset that his family is not at his bedside. Patient states that he is crying. Like to go home. Patient denies any chest pain or difficulty breathing at this time. Patient remains afebrile heart rate 101, respirations 20, blood pressure 140/92 pulse ox 97% on room air. W BC 0.7, hemoglobin 15.0, potassium 4.5, BUN 9, creatinine 0.59 05/15: Patient is found resting in bed bleeding of being upset of being in the hospital. He is requesting to go home. Cardizem drip has been DC'd. He is currently in atrial flutter with rate controlled except when upset he will then increase rate to the 120s. Patient will be transitioned to L request. Increase beta tata. Echocardiogram results: Atrial flutter, left ventricular size is normal, borderline concentric left ventricular atrophy, EF 45-50%, mild tricuspid regurg present Discharge diagnosis 1 acute onset of A. fib with RVR: 2 chest pain and angina: . 3.History of cerebral palsy: With hydrocephalus post shunt 4 history of seizure with no seizure activity lately Discharge disposition: Home Impression and plan of care have been directed as dictated by the signing physician. Lilian Gonzalez nurse practitioner acting as scribe for signing physician. Plan - Discharge Summary Discharge Rx Participant: No New Discharge Prescriptions: New Apixaban [Eliquis] 5 mg PO BID #60 tab Metoprolol Tartrate [Lopressor] 50 mg PO BID #60 tab Famotidine [Pepcid] 20 mg PO DAILY #30 tab Continue Midazolam [Nayzilam] 1 spray INTRANASAL DIRECTED PRN PRN Reason: Seizures Mupirocin [Mupirocin 2%] 1 applic TOPICAL BID PRN PRN Reason: skin irritations on hands Lacosamide [Vimpat] 100 mg PO BID@0800,2100 tiZANidine HCL 2 mg PO BID@0800,2100 Docusate [Colace] 100 mg PO HS@2100 Calcium Carbonate [Calcium] 300 mg PO HS@2100 Aspirin [[place] Aspirin EC] 81 mg PO HS@2100 Nystatin 100,000 Unit/gm Powd [Mycostatin Powder] 1 applic TOPICAL BID PRN PRN Reason: Rash Discharge Medication List Aspirin [[place] Aspirin EC] 81 mg PO HS@209905/13/20 [History] Calcium Carbonate [Calcium] 300 mg PO HS@209905/13/20 [History] Docusate [Colace] 100 mg PO HS@209905/13/20 [History] Lacosamide [Vimpat] 100 mg PO BID@0800,209905/13/20 [History] Midazolam [Nayzilam] 1 spray INTRANASAL DIRECTED PRN 05/13/20 [History] Mupirocin [Mupirocin 2%] 1 applic TOPICAL BID PRN 05/13/20 [History] Nystatin 100,000 Unit/gm Powd [Mycostatin Powder] 1 applic TOPICAL BID PRN 05/13/20 [History] tiZANidine HCL 2 mg PO BID@0800,209905/13/20 [History] Apixaban [Eliquis] 5 mg PO BID #60 tab 05/15/20 [Rx] Famotidine [Pepcid] 20 mg PO DAILY #30 tab 05/15/20 [Rx] Metoprolol Tartrate [Lopressor] 50 mg PO BID #60 tab 05/15/20 [Rx] Follow up Appointment(s)/Referral(s): Ross Falk MD [STAFF PHYSICIAN] - 1 Week (call office when open to make follow up appointment) Freeman Stone DO [Primary Care Provider] - 1-2 days (call office when open to make follow up appointment) Patient Instructions/Handouts: A-fib (Atrial Fibrillation) (DC), Safe Use of Anticoagulants (DC)
[2020-05-15 11:47] VITALS: BP 92/58; PULSE 85
--- NOTE | 2020-05-17 07:49 | CDI ---
Documentation Clarification Form Date: 05/17/20 From: Rama Pelaez CCS Phone: If you have a question about this query, please contact Jacinda Dupree, [employer] at [phone] between 8am and 5pm. Admit Date: 05/13/20 Discharge Date:05/15/20 Patient Name: Ernesto Wilkes Visit Number: [id number] ATTENTION: The Clinical Documentation Specialists (CDI) and [facility] Coding Staff appreciate your assistance in clarifying documentation. Please respond to the clarification below the line at the bottom and electronically sign. The CDI & [facility] Coding staff will review the response and follow-up if needed. Please note: Queries are made part of the Legal Health Record. If you have any questions, please contact the author of this message via ITS. Dear Dr. Dozier, Atrial Fibrillation is documented in the ED, H&P, PNs, Consult, DS. H&P documents: acute onset of A. fib with RVR: Pulse rates running over 100 6280 beats per minutes, patient was started on Cardizem drip we'll consult cardiology heparin drip or anticoagulation depending on patient responded continue heparin drip for now until the morning when he sees cardiology and if patient is going to still on anticoagulation long-term can be on one of the new oral agent. Consult documents: Typical atrial flutter with rapid ventricular response #2 chest pain, likely secondary to A. fib flutter with rapid ventricular response PN 05/15 documents: Continues to be in atrial fibrillation, at times the heart rate jumps up into the 07/21/1929 range, usually when he is upset and agitated. History/Risk Factors: Hx AFIB, Cerebral palsy, TR, Epilepsy Clinical Indicators: Atrial fibrillation, Atrial Flutter EKG/telemetry: Atrial flutter with variable AV block with premature ventricular or aberrantly conducted complexes Treatment: Cardizem 125 mg IV, Metoprolol 50 mg PO BID , Eliquis 5 mg PO BID Consults: Deya In your professional opinion, can you please clarify the type of Atrial Fibrillation, if known? Chronic/Permanent xx Paroxysmal Persistent Other, please specify Unable to determine MTDD
== END 2020-05-15 13:23 | disposition home or self-care (01) | DRG 309 ==
LOC: EC 16:53 → 3SCARD 19:41
PROVIDERS: ADMIT Internal Medicine Geriatric Medicine; ATTEND Internal Medicine Geriatric Medicine
DX: I48.0 Paroxysmal atrial fibrillation (principal); G91.9 Hydrocephalus, unspecified; I48.3 Typical atrial flutter; G80.9 Cerebral palsy, unspecified; G40.909 Epilepsy, unspecified, not intractable, without status epilepticus; I20.9 Angina pectoris, unspecified; K44.9 Diaphragmatic hernia without obstruction or gangrene; K22.70 Barrett's esophagus without dysplasia; I07.1 Rheumatic tricuspid insufficiency; Z98.2 Presence of cerebrospinal fluid drainage device; Z79.82 Long term (current) use of aspirin; Z79.899 Other long term (current) drug therapy; Z88.8 Allergy status to other drugs, medicaments and biological substances; Z82.49 Family history of ischemic heart disease and other diseases of the circulatory system
CPT/HCPCS: 36415; 71045; 80048; 80053; 80061; 80235; 83735; 84443; 84484; 85025; 85610; 85730; 93005; 93306; 96365; 96366; 96368; 96372; 96376; 99291

== ENCOUNTER → 2020-05-25 | Outpatient (CLI) | payer MEDICARE, OTHER ==
--- NOTE | 2020-05-25 13:44 | XR ---
EXAMINATION TYPE: XR knee complete LT DATE OF EXAM: 05/25/2020 CLINICAL HISTORY: Left knee pain. TECHNIQUE: Three views of the left knee are obtained. COMPARISON: None. FINDINGS: There is no acute fracture/dislocation evident in left knee. Mild to moderate narrowing pa tellofemoral compartment. Mild narrowing medial tibiofemoral compartment. No significant spurring. Sm all fabella incidentally noted. The overlying soft tissue appears unremarkable. IMPRESSION: As above.
== END | disposition home or self-care (01) ==
LOC: RADXRMAIN 13:09
PROVIDERS: ATTEND Family Medicine
DX: M25.562 Pain in left knee (principal)

== ENCOUNTER 2020-06-02 10:33 | Observation (INO) | payer MEDICARE, OTHER ==
[2020-06-02] MEDS ORDERED: DIAZEPAM 5 MG/ML 2 ML INJ IVP STA (10:59)
[2020-06-02] MEDS ORDERED: DILTIAZEM DRIP BOLUS FROM BAG 1 MG SOLN IV ONE (10:59)
[2020-06-02] MEDS ORDERED: SODIUM CHLORIDE 0.9% 1,000 ML IV STA (10:59)
--- NOTE | 2020-06-02 11:06 | ED ---
General Adult HPI - General Chief complaint: Seizure Stated complaint: Seizure Time Seen by Provider: 06/02/20 10:39 Source: family, EMS, RN notes reviewed Mode of arrival: EMS Limitations: altered mental status, physical limitation - History of Present Illness Initial comments: Patient is a 55-year-old male presenting to the emergency department by EMS for seizure and increased heart rate. Patient does have history of chronic seizures, usually once a month however has been having a little bit more recently. Family is present who provides history as patient cannot. Patient is DO NOT RESUSCITATE, no x-rays and no catheters per family. Patient is somewhat agitated at this point and family states he does get like this at times. Patient also was recently diagnosed with atrophic relation however they have had a problem following up with cardiology. - Related Data Home Medications Medication Instructions Recorded Confirmed Calcium Carbonate [Calcium] 300 mg PO HS@209905/13/20 06/02/20 Docusate [Colace] 100 mg PO HS@209905/13/20 06/02/20 Lacosamide [Vimpat] 100 mg PO BID@0800,209905/13/20 06/02/20 Midazolam [Nayzilam] 1 spray INTRANASAL DIRECTED PRN 05/13/20 06/02/20 Mupirocin [Mupirocin 2%] 1 applic TOPICAL BID PRN 05/13/20 06/02/20 Nystatin 100,000 Unit/gm Powd 1 applic TOPICAL BID PRN 05/13/20 06/02/20 [Mycostatin Powder] tiZANidine HCL 2 mg PO BID@0800,209905/13/20 06/02/20 Aspirin 325 mg PO HS 06/02/20 06/02/20 Nebivolol [Bystolic] 5 mg PO DAILY@0800 06/02/20 06/02/20 Allergies Allergy/AdvReac Type Severity Reaction Status Date / Time lorazepam [From Ativan] AdvReac aggressive Verified 05/13/20 20:34 behavior Review of Systems ROS Statement: Those systems with pertinent positive or pertinent negative responses have been documented in the HPI. ROS Other: All systems not noted in ROS Statement are negative. Limitations: ROS unobtainable due to patients medical condition Past Medical History Past Medical History: Atrial Fibrillation, Seizure Disorder Additional Past Medical History / Comment(s): cerebral palsy, hydrocephalus with shunt, hiatal hernia and thickening of esophagus, hx aspiration History of Any Multi-Drug Resistant Organisms: None Reported Additional Past Surgical History / Comment(s): shunt in brain, foot surgery Past Anesthesia/Blood Transfusion Reactions: No Reported Reaction Past Psychological History: No Psychological Hx Reported Smoking Status: Never smoker Past Alcohol Use History: None Reported Past Drug Use History: None Reported - Past Family History Mother Family Medical History: AFIB, Pulmonary Embolus General Exam Limitations: altered mental status, physical limitation General appearance: alert Head exam: Present: atraumatic Eye exam: Present: normal appearance Neck exam: Present: normal inspection Respiratory exam: Present: normal lung sounds bilaterally Cardiovascular Exam: Present: tachycardia GI/Abdominal exam: Present: soft. Absent: tenderness Extremities exam: Present: normal inspection Neurological exam: Present: alert, other (Limited exam. Moves all extremities.) Psychiatric exam: Present: normal affect, normal mood Skin exam: Present: normal color Course Vital Signs 06/02/20 06/02/20 06/02/20 10:36 11:16 11:39 Pulse Rate 180 H 151 H 114 H Respiratory 22 18 18 Rate Blood Pressure 100/71 102/62 99/64 O2 Sat by Pulse 96 95 98 Oximetry 06/02/20 06/02/20 06/02/20 11:53 12:05 12:40 Pulse Rate 131 H 122 H 87 Respiratory 18 20 20 Rate Blood Pressure 99/64 92/75 91/69 O2 Sat by Pulse 95 94 L 96 Oximetry EKG Findings - EKG Comments: EKG Findings:: Neuro complex tachycardia with some regularity, rate 178. QRS 78. QT 254. QTC 437. Normal axis. Normal QRS. No acute ST change. Medical Decision Making - Medical Decision Making Patient reevaluated. Heart rate improved to 108. Patient family updated on results and plan. Case was discussed with Dr. Dozier, who will admit covering for Dr. Zhu. - Lab Data Result diagrams: 06/02/20 10:50 06/02/20 10:50 Lab Results 06/02/20 06/02/20 06/02/20 Range/Units 10:50 10:50 10:50 WBC 9.7 (3.8-10.6) k/uL RBC 4.91 (4.30-5.90) m/uL Hgb 15.0 (13.0-17.5) gm/dL Hct 45.8 (39.0-53.0) % MCV 93.2 (80.0-100.0) fL MCH 30.6 (25.0-35.0) pg MCHC 32.8 (31.0-37.0) g/dL RDW 12.9 (11.5-15.5) % Plt Count 298 (150-450) k/uL MPV 8.0 Neutrophils % (Manual) 75 % Lymphocytes % (Manual) 16 % Monocytes % (Manual) 7 % Eosinophils % (Manual) 1 % Basophils % (Manual) 1 % Neutrophils # (Manual) 7.28 (1.3-7.7) k/uL Lymphocytes # (Manual) 1.55 (1.0-4.8) k/uL Monocytes # (Manual) 0.68 (0-1.0) k/uL Eosinophils # (Manual) 0.10 (0-0.7) k/uL Basophils # (Manual) 0.10 (0-0.2) k/uL Nucleated RBCs 0 (0-0) /100 WBC Manual Slide Review Performed RBC Morphology Normal Sodium 139 (137-145) mmol/L Potassium 4.8 (3.5-5.1) mmol/L Chloride 106 (98-107) mmol/L Carbon Dioxide 26 (22-30) mmol/L Anion Gap 7 mmol/L BUN 14 (9-20) mg/dL Creatinine 0.70 (0.66-1.25) mg/dL Est GFR (CKD-EPI)AfAm >90 (>60 ml/min/1.73 sqM) Est GFR (CKD-EPI)NonAf >90 (>60 ml/min/1.73 sqM) Glucose 106 H (74-99) mg/dL Calcium 9.6 (8.4-10.2) mg/dL Magnesium 2.0 (1.6-2.3) mg/dL Total Bilirubin 0.6 (0.2-1.3) mg/dL AST 26 (17-59) U/L ALT 18 (4-49) U/L Alkaline Phosphatase 73 (38-126) U/L Troponin I <0.012 (0.000-0.034) ng/mL Total Protein 7.0 (6.3-8.2) g/dL Albumin 3.9 (3.5-5.0) g/dL TSH 2.670 (0.465-4.680) mIU/L Free T4 1.17 (0.78-2.19) ng/dL Free T3 pg/mL 4.1 (2.8-5.3) pg/ml Critical Care Time Critical Care Time: Yes Total Critical Care Time: 32 Disposition Clinical Impression: Atrial flutter with rapid ventricular response, Seizure Disposition: ADMITTED IP TO THIS HOSP Is patient prescribed a controlled substance at d/c from ED?: No Referrals: Freeman Stone DO [Primary Care Provider] - 1-2 days Decision Time: 12:53
[2020-06-02] MEDS ORDERED: DILTIAZEM 125 MG in SODIUM CHLORIDE 0.9% 100 ML IV SCH (11:15)
[2020-06-02 12:09] LABS: Prothrombin Time 10.5 sec (9.0-12.0)
[2020-06-02 12:10] LABS: HCT 45.8 % (39.0-53.0); MCH 30.6 pg (25.0-35.0); MCHC 32.8 g/dL (31.0-37.0); MCV 93.2 fL (80.0-100.0); Platelet Count 298 k/uL (150-450); RBC 4.91 m/uL (4.30-5.90); RDW 12.9 % (11.5-15.5); WBC 9.7 k/uL (3.8-10.6)
[2020-06-02 12:12] LABS: ALT 18 U/L (4-49); AST 26 U/L (17-59); African American GFR (CKD) >90 (>60 ml/min/1.73 sqM); Albumin 3.9 g/dL (3.5-5.0); Alkaline Phosphatase 73 U/L (38-126); Anion Gap 7 mmol/L; Blood Urea Nitrogen 14 mg/dL (9-20); Calcium 9.6 mg/dL (8.4-10.2); Carbon Dioxide 26 mmol/L (22-30); Chloride 106 mmol/L (98-107); Glucose 106 mg/dL (74-99); Non-African American GFR(CKD) >90 (>60 ml/min/1.73 sqM); Sodium 139 mmol/L (137-145); Total Bilirubin 0.6 mg/dL (0.2-1.3)
[2020-06-02 12:16] LABS: Potassium 4.8 mmol/L (3.5-5.1)
[2020-06-02 12:27] LABS: Lymphocytes # (M) 1.55 k/uL (1.0-4.8); Monocytes # (M) 0.68 k/uL (0-1.0); Neutrophils # (M) 7.28 k/uL (1.3-7.7); Neutrophils % (M) 75 %; Nucleated Red Blood Cells 0 /100 WBC (0-0); Total Cells Counted 100
[2020-06-02 12:30] LABS: T4, Free (Free Thyroxine) 1.17 ng/dL (0.78-2.19)
[2020-06-02] MEDS ORDERED: NALOXONE 0.4 MG/ML 1 ML VIAL IV PRN (12:54)
[2020-06-02] MEDS ORDERED: SODIUM CHLORIDE 0.9% 1,000 ML IV SCH (13:00)
[2020-06-02] MEDS ORDERED: MUPIROCIN 2% OINT 22 GM TUBE TOPICAL PRN (13:48)
[2020-06-02] MEDS ORDERED: MIDAZOLAM 5 MG/0.1 ML INHALATION PRN (13:48)
[2020-06-02] MEDS ORDERED: NYSTATIN 100,000 UNIT/GM POWD 15 GM TOPICAL PRN (13:48)
[2020-06-02] MEDS: LACOSAMIDE 50 MG TABLET PO SCH (20:36)
[2020-06-02] MEDS: tiZANidine 4 MG TAB PO SCH (20:37)
[2020-06-02] MEDS ORDERED: DOCUSATE 100 MG CAP PO SCH (21:00)
[2020-06-02] MEDS ORDERED: CALCIUM CARBONATE 500 MG CHEWABLE PO SCH (21:00)
[2020-06-02] MEDS ORDERED: ASPIRIN 325 MG TAB PO SCH (21:00)
--- NOTE | 2020-06-03 00:14 | P.HPIM ---
History of Present Illness H&P Date: 06/02/20 Chief Complaint: A. fib with RVR: Recurrent seizure, cerebral palsy 55-year-old male one of Dr. 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 fib with RVR was admitted for 24 hours and was discharge when his A. fib/A flutter was under control. Patient apparently has been having recurrent episode of seizure was seen by his neurologist at [facility] and Vempat dose was adjusted with family has not done it yet patient had a seizure episode today was followed by severe agitation and slight worsening mental status change and found to have very rapid pulse running close to 160 beats per minutes similar to what happened and his last hospitalization ended up coming to the emergency department at [facility] where was seen and evaluated still found to be in A. fib with RVR with pulse rate running over 150 beats per minutes. Patient was started on Cardizem drip brought the pulse rate down and he was very agitated was biting his wrist at the time with the caregiver and his sister stain on his bedside patient become slightly bit,. Patient will be hospitalized for the above problem will be seen cardiology and if needed neurology. EF from last admission was only 45% Pt was discharged on Eliquis 5mg BID along with Metoprolol 50mg BID and apparently was changed after discharged to go back on old BP meds and no Anticoagulation???. Review of Systems CONSTITUTIONAL: Well-developed no acute respiratory distress. Slight devel opment delay. EYES: No icterus sclerae, no conjunctivitis. EARS, NOSE, MOUTH, THROAT, and FACE: No sore throat, lymphadenopathy, carotid bruits or deformity. RESPIRATORY: No SOB cough or wheezes. CARDIOVASCULAR: Tachycardia with A. fib no chest pain mild shortness of breath. GASTROINTESTINAL: No Abd pain, Nausea or vomiting, no Diarrhea or constipation, No GI Bleed, no distention or masses. GENITOURINARY: Negative for Hematuria or UTI, no kidney stones. INTEGUMENT/BREAST: Negative for any muscular injury with mild osteoarthritis.. HEMATOLOGIC/LYMPHATIC: Negative for bleed or purpura. MUSCULOSKELTAL: Negative for Myalgia or arthralgia. NEURLOGICAL: History of cerebral palsy along with hydrocephalus post shunt patient still having a recurrent seizure. BEHAVIORAL/PSYCH: Negative. ENDOCRINE: Negative. Past Medical History Past Medical History: Atrial Fibrillation, Seizure Disorder Additional Past Medical History / Comment(s): cerebral palsy, hydrocephalus with shunt, hiatal hernia and thickening of esophagus, hx aspiration History of Any Multi-Drug Resistant Organisms: None Reported Additional Past Surgical History / Comment(s): shunt in brain, foot surgery Past Anesthesia/Blood Transfusion Reactions: No Reported Reaction Past Psychological History: No Psychological Hx Reported Additional Psychological History / Comment(s): cognitively and intellectually impaired, compulsive disorder, when agitated bites self,minimally verbal Smoking Status: Never smoker Past Alcohol Use History: None Reported Past Drug Use History: None Reported - Past Family History Mother Family Medical History: AFIB, Pulmonary Embolus Medications and Allergies Home Medications Medication Instructions Recorded Confirmed Type Calcium Carbonate [Calcium] 300 mg PO HS@209905/13/20 06/02/20 History Docusate [Colace] 100 mg PO HS@209905/13/20 06/02/20 History Lacosamide [Vimpat] 100 mg PO BID@08,209905/13/20 06/02/20 History Midazolam [Nayzilam] 1 spray INTRANASAL DIRECTED PRN 05/13/20 06/02/20 History Mupirocin [Mupirocin 2%] 1 applic TOPICAL BID PRN 05/13/20 06/02/20 History Nystatin 100,000 Unit/gm Powd 1 applic TOPICAL BID PRN 05/13/20 06/02/20 History [Mycostatin Powder] tiZANidine HCL 2 mg PO BID@08,209905/13/20 06/02/20 History Aspirin 325 mg PO HS 06/02/20 06/02/20 History Nebivolol [Bystolic] 5 mg PO DAILY@0800 06/02/20 06/02/20 History Allergies Allergy/AdvReac Type Severity Reaction Status Date / Time lorazepam [From Ativan] AdvReac aggressive Verified 05/13/20 20:34 behavior Physical Exam Vitals: Vital Signs Temp Pulse Pulse Resp BP BP Pulse Ox 06/02/20 20:00 97.5 F L 96 16 88/59 96 06/02/20 16:00 90 20 06/02/20 14:00 90 06/02/20 12:40 87 20 91/69 96 06/02/20 12:05 122 H 20 92/75 94 L 06/02/20 11:53 131 H 18 99/64 95 06/02/20 11:39 114 H 18 99/64 98 06/02/20 11:16 151 H 18 102/62 95 06/02/20 10:36 180 H 22 100/71 96 Intake and Output 06/02/20 06/02/20 06/03/20 14:59 22:59 06:59 Intake Total 6.333 14.708 Balance 6.333 14.708 Intake: Intake, IV Titration 6.333 14.708 Amount Diltiazem 125 mg In 6.333 14.708 Sodium Chloride 0.9% 100 ml @ 5 MG/HR 5 mls/hr IV .Q24H [facility] Rx#:[id number] Other: Weight 69.4 kg 69.4 kg General Appearance: Alert, cooperative, no distress, appears stated age. Neck HEENT: Supple, no lymphadenopathy, no thyroid enlargement, no carotid bruits. Lungs: Clear to auscultation without crackles or wheezes no rhonchi, no deformity. Chest Wall: Chest wall normal expansion with deep inspiration no tenderness and no deformity was found on exam, no costochondral pain or discomfort. Heart: Irregular rate and rhythm, S1, S2 normal, no murmur, rub or gallop. Back: Symmetric, no curvature, ROM normal, no CVA tenderness. Abdomen: Soft, non-tender, bowel sounds active all four quadrants, no masses, no organomegaly. Extremities: Mild deformity with contraction specially and upper extremity more than the left side also has more sign of bite and scratch on his wrist specially the left compared to the right side. Pulses: 2+ and symmetric. Skin: Skin color, texture, tugor normal, no rashes or lesions. Neurologic: Alert oriented with slight confusion cranial nerves II through XII intact, generalized weakness of the lower extremity compared to the upper e xtremity with slight contraction of the upper extremity as well but he is still able to move with normal strength and upper extremity. Results CBC & Chem 7: 06/02/20 10:50 06/02/20 10:50 Labs: Abnormal Lab Results - Last 24 Hours (Table) 06/02/20 Range/Units 10:50 Glucose 106 H (74-99) mg/dL Thrombosis Risk Factor Assmnt - DVT/VTE Prophylaxis DVT/VTE Prophylaxis: Mechanical Prophylaxis ordered - Choose All That Apply Each Factor Represents 1 point: Age 41-60 years Thrombosis Risk Factor Assessment Total Risk Factor Score: 1 Thrombosis Risk Factor Assessment Level: Low Risk Assessment and Plan Assessment: 1 Atrial fibrillation with rapid ventricular spontaneous: Patient was started on Cardizem drip consult cardiology anticoagulation is recommended currently specially with patient's current condition with EF and Cardiomyopathy switch patient Bysystolic to metoprolol and titrate dose higher also patient from last admission was post to stay on Cardizem not a clear why he stopped medication co mpletely. Should go back on Metoprolol and Eliquis as per discharged last time. 2 Cardiomyopathy: will stay on Metoprolol along with RASHAUN and small dose of diuretics and repeat Echo in 4 weeks. 3 seizure with recurrent seizure activity: Patient has been on Vimpat at 100 mg twice a day according to his family was post to have the dose increased never done so far so despite being on medication patient still having seizure activity regularly. 4 behavioral problem: Patient still seen neurology and might benefit from seen psych as well. 5 hypertension: Has been on by systolic 5 mg daily which will be switched to metoprolol this point. 6 hyperglycemia: On diet control only. 7 hyperlipidemia: With total cholesterol above 200 and LDL is 155 the option of statin to be discussed with the family if agreeable patient can benefit from atorvastatin 10 mg daily. 8 history of cerebral palsy and hydrocephalus post shunt his doing well. 9 GI prophylaxis: Patient will be on Pepcid 20 mg daily. 10 DVT prophylaxis: Patient will have knee-high ELISHA hose and early mobilization he is not a good candidate for long-term anticoagulation.and chance of bleeding and head trauma and hemorrhage is much higher with it. CODE STATUS: DO NOT RESUSCITATE. Admit patient to the hospital for 1-2 nights stay.
[2020-06-03] MEDS ORDERED: NEBIVOLOL 5 MG TAB PO SCH (08:00)
[2020-06-03] MEDS: tiZANidine 4 MG TAB PO SCH (08:10)
[2020-06-03] MEDS ORDERED: HEPARIN SODIUM,PORCINE 5,000 UNIT/ML 1 ML VIAL SQ SCH (09:00)
[2020-06-03] MEDS ORDERED: FAMOTIDINE 20 MG TAB PO SCH (09:00)
[2020-06-03] MEDS ORDERED: METOPROLOL SUCCINATE (ER) 25 MG TAB.ER.24H PO SCH (09:00)
[2020-06-03] MEDS ORDERED: APIXABAN 5 MG TAB PO SCH (09:00)
[2020-06-03] MEDS: LACOSAMIDE 50 MG TABLET PO SCH (10:10)
--- NOTE | 2020-06-03 12:21 | P.PN ---
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 fib with RVR was admitted for 24 hours and was discharge when his A. fib/A flutter was under control. Patient apparently has been having recurrent episode of seizure was seen by his neurologist at [facility] and Vempat dose was adjusted with family has not done it yet patient had a seizure episode today was followed by severe agitation and slight worsening mental status change and found to have very rapid pulse running close to 160 beats per minutes similar to what happened and his last hospitalization ended up coming to the emergency department at [facility] where was seen and evaluated still found to be in A. fib with RVR with pulse rate running over 150 beats per minutes. Patient was started on Cardizem drip brought the pulse rate down and he was very agitated was biting his wrist at the time with the caregiver and his sister stain on his bedside patient become slightly bit,. Patient will be hospitalized for the above problem will be seen cardiology and if needed neurology. EF from last admission was only 45% Pt was discharged on Eliquis 5mg BID along with Metoprolol 50mg BID and apparently was changed after discharged to go back on old BP meds and no Anticoagulation???. 06/03: Patient is seen again today in the emergency center. His sister has spent the night with him at the bedside. Patient is currently in a sinus rhythm, rate controlled. Cardiology has evaluated and made medication changes and has cleared the patient her discharge. Patient has been afebrile, heart rate 90, blood pressure 102/72, pulse ox 95% on room air. Patient has not been on eliquis due to neurologist recommendations as patient is a self-biter and also has frequent falls with seizures. Patient will be discharged home today in stable condition. REVIEW OF SYSTEMS CONSTITUTIONAL: Well-developed no acute respiratory distress. Slight development delay. EYES: No icterus sclerae, no conjunctivitis. EARS, NOSE, MOUTH, THROAT, and FACE: No sore throat, lymphadenopathy, carotid bruits or deformity. RESPIRATORY: No SOB cough or wheezes. CARDIOVASCULAR: Tachycardia with A. fib no chest pain mild shortness of breath. GASTROINTESTINAL: No Abd pain, Nausea or vomiting, no Diarrhea or constipation, No GI Bleed, no distention or masses. GENITOURINARY: Negative for Hematuria or UTI, no kidney stones. INTEGUMENT/BREAST: Negative for any muscular injury with mild osteoarthritis.. HEMATOLOGIC/LYMPHATIC: Negative for bleed or purpura. MUSCULOSKELTAL: Negative for Myalgia or arthralgia. NEURLOGICAL: History of cerebral palsy along with hydrocephalus post shunt patient still having a recurrent seizure. BEHAVIORAL/PSYCH: Negative. ENDOCRINE: Negative. PHYSICAL EXAMINATION General Appearance: Alert, cooperative, no distress, appears stated age. Neck HEENT: Supple, no lymphadenopathy, no thyroid enlargement, no carotid bruits. Lungs: Clear to auscultation without crackles or wheezes no rhonchi, no deformity. Chest Wall: Chest wall normal expansion with deep inspiration no tenderness and no deformity was found on exam, no costochondral pain or discomfort. Heart: Irregular rate and rhythm, S1, S2 normal, no murmur, rub or gallop. Back: Symmetric, no curvature, ROM normal, no CVA tenderness. Abdomen: Soft, non-tender, bowel sounds active all four quadrants, no masses, no organomegaly. Extremities: Mild deformity with contraction specially and upper extremity more than the left side also has more sign of bite and scratch on his wrist specially the left compared to the right side. Pulses: 2+ and symmetric. Skin: Skin color, texture, tugor normal, no rashes or lesions. Neurologic: Alert oriented with slight confusion cranial nerves II through XII intact, generalized weakness of the lower extremity compared to the upper extremity with slight contraction of the upper extremity as well but he is still able to move with normal strength and upper extremity. ASSESSMENT AND PLAN 1 Atrial fibrillation with rapid ventricular spontaneous: Patient was started on Cardizem drip consult cardiology anticoagulation is recommended currently specially with patient's current condition with EF and Cardiomyopathy switch patient Bysystolic to metoprolol and titrate dose higher also patient from last admission was post to stay on Cardizem not a clear why he stopped medication completely. Should go back on Metoprolol and Eliquis as per discharged last time . 2 Cardiomyopathy: will stay on Metoprolol along with RASHAUN and small dose of diuretics and repeat Echo in 4 weeks. 3 seizure with recurrent seizure activity: Patient has been on Vimpat at 100 mg twice a day according to his family was post to have the dose increased never done so far so despite being on medication patient still having seizure activity regularly. 4 behavioral problem: Patient still seen neurology and might benefit from seen psych as well. 5 hypertension: Has been on by systolic 5 mg daily which will be switched to metoprolol this point. 6 hyperglycemia: On diet control only. 7 hyperlipidemia: With total cholesterol above 200 and LDL is 155 the option of statin to be discussed with the family if agreeable patient can benefit from atorvastatin 10 mg daily. 8 history of cerebral palsy and hydrocephalus post shunt his doing well. 9 GI prophylaxis: Patient will be on Pepcid 20 mg daily. 10 DVT prophylaxis: Patient will have knee-high ELISHA hose and early mobilization he is not a good candidate for long-term anticoagulation.and chance of bleeding and head trauma and hemorrhage is much higher with it. CODE STATUS: DO NOT RESUSCITATE. DISCHARGE PLAN home today. Impression and plan of care have been directed as dictated by the signing katia martines. Tatiana Roa nurse practitioner acting as scribe for signing physician. Objective - Vital Signs Vital signs: Vital Signs Temp 98.2 F 06/03/20 08:00 Pulse 90 06/03/20 08:00 Resp 18 06/03/20 08:00 BP 110/81 06/03/20 08:00 Pulse Ox 93 L 06/03/20 08:00 Intake & Output 06/02/20 06/03/20 06/03/20 18:59 06:59 18:59 Intake Total 6.333 14.708 Balance 6.333 14.708 Weight 69.4 kg 69.4 kg Intake: Intake, IV Titration 6.333 14.708 Amount Diltiazem 125 mg In 6.333 14.708 Sodium Chloride 0.9% 100 ml @ 5 MG/HR 5 mls/hr IV .Q24H [facility] Rx#:[id number] Other: # Voids 1 # Bowel Movements 2 - Labs CBC & Chem 7: 06/02/20 10:50 06/02/20 10:50 Labs: Abnormal Lab Results - Last 24 Hours (Table) 06/02/20 Range/Units 10:50 Glucose 106 H (74-99) mg/dL
[2020-06-03] MEDS ORDERED: AMIODARONE 200 MG TAB PO SCH (12:30)
[2020-06-03 13:23] VITALS: BP 106/76; PULSE 78; RESP 18; TEMP 97.8
--- NOTE | 2020-06-03 13:24 | P.CRDCN ---
History of Present Illness History of present illness: HISTORY OF PRESENTING ILLNESS This is a pleasant 55-year-old male past medical history significant for cerebral palsy, seizure disorder, typical atrial flutter, hydrocephalus and frequent agitation. He was recently diagnosed with atrial flutter and has yet to follow up but has an appointment with Dr. Falk 06/17. He does not communicate, his sister is at the bedside providing information. She is his power of associate attorney. When he was discharged in May he was placed on Lopressor and Eliquis. The sister states that they when followed up with his neurologist at [facility] and his PCP and the decision was made to discontinue those medications and use bystolic and full dose aspirin. [facility] he was found having a seizure and his heart rate was elevated. On arrival EKG revealed supraventricular tachycardia with heart rate 178, unable to determine at this rate if flutter waves. However telemetry tracings do show intermittent episodes of typical atrial flutter. He was initiated on cardizem infusion. Currently he is maintaining sinus mechanism with rates in the 80's. Laboratory data reviewed, CBC unremarkable, sodium 139, potassium 4.8, creatinine 0.7, magnesium 2.0, troponin negative and TSH 2.67. At home he is taking only by systolic. REVIEW OF SYSTEMS At the time of my exam: Unable to obtain accurate review of systems secondary to mental status. PHYSICAL EXAMINATION Blood pressure 102/72 heart rate 90 afebrile and maintaining oxygen saturation on room air. CONSTITUTIONAL: No apparent distress. HEENT: Head is normocephalic. Pupils are equal, round. Sclerae anicteric. Mucous membranes of the mouth are moist. No JVD. No carotid bruit. CHEST EXAMINATION: Lungs are clear to auscultation. No chest wall tenderness is noted on palpation or with deep breathing. Diminished bilaterally. HEART EXAMINATION: Regular rate and rhythm. S1, S2 heard. No murmurs, gallops or rub. ABDOMEN: Soft, nontender. Positive bowel sounds. EXTREMITIES: 2+ peripheral pulses, no lower extremity edema and no calf tenderness. NEUROLOGIC EXAMINATION: Patient is awake, alert and nonverbal ASSESSMENT Atrial flutter, typical Cerebral palsy Hydrocephalus History of seizures PLAN Lengthy discussion had with the legal guardian at the bedside. She does not want him to take eliquis due to his seizures, falls and his biting issues. Risk for thromboembolic phenomenon explained to the guardian and she still would not like anti-coagulation. We recommended amiodarone to try to prevent him from going in and out of arrhythmia. She also is declining this treatment. She is, however, agreeable to changing bystolic to metoprolol. He already has a follow up appointment with Dr. Falk 06/17. Stable for discharge from a cardiac perspective. Thank you kindly for this consultation. Nurse Practitioner note has been reviewed, I agree with a documented findings and plan of care. Patient was seen and examined. Past Medical History Past Medical History: Atrial Fibrillation, Seizure Disorder Additional Past Medical History / Comment(s): cerebral palsy, hydrocephalus with shunt, hiatal hernia and thickening of esophagus, hx aspiration History of Any Multi-Drug Resistant Organisms: None Reported Additional Past Surgical History / Comment(s): shunt in brain, foot surgery Past Anesthesia/Blood Transfusion Reactions: No Reported Reaction Past Psychological History: No Psychological Hx Reported Additional Psychological History / Comment(s): cognitively and intellectually impaired, compulsive disorder, when agitated bites self,minimally verbal Smoking Status: Never smoker Past Alcohol Use History: None Reported Past Drug Use History: None Reported - Past Family History Mother Family Medical History: AFIB, Pulmonary Embolus Medications and Allergies Home Medications Medication Instructions Recorded Confirmed Type Calcium Carbonate [Calcium] 300 mg PO HS@209905/13/20 06/02/20 History Docusate [Colace] 100 mg PO HS@209905/13/20 06/02/20 History Lacosamide [Vimpat] 100 mg PO BID@08,209905/13/20 06/02/20 History Midazolam [Nayzilam] 1 spray INTRANASAL DIRECTED PRN 05/13/20 06/02/20 History Mupirocin [Mupirocin 2%] 1 applic TOPICAL BID PRN 05/13/20 06/02/20 History Nystatin 100,000 Unit/gm Powd 1 applic TOPICAL BID PRN 05/13/20 06/02/20 History [Mycostatin Powder] tiZANidine HCL 2 mg PO BID@0800,209905/13/20 06/02/20 History Aspirin 325 mg PO DAILY #30 tab 06/03/20 Rx Metoprolol Succinate (ER) [Toprol 25 mg PO DAILY #90 tab.er.24h 06/03/20 Rx XL] Allergies Allergy/AdvReac Type Severity Reaction Status Date / Time lorazepam [From Ativan] AdvReac aggressive Verified 05/13/20 20:34 behavior Physical Exam Vitals: Vital Signs Temp Pulse Pulse Resp BP BP Pulse Ox 06/03/20 08:00 98.2 F 90 18 110/81 93 L 06/03/20 03:21 97.9 F 75 19 91/74 95 06/02/20 23:29 97.6 F 90 18 101/55 97 06/02/20 20:00 97.5 F L 96 16 88/59 96 06/02/20 16:00 90 20 06/02/20 14:00 90 06/02/20 12:40 87 20 91/69 96 06/02/20 12:05 122 H 20 92/75 94 L 06/02/20 11:53 131 H 18 99/64 95 06/02/20 11:39 114 H 18 99/64 98 06/02/20 11:16 151 H 18 102/62 95 06/02/20 10:36 180 H 22 100/71 96 Intake and Output 06/02/20 06/03/20 06/03/20 22:59 06:59 14:59 Intake Total 14.708 Balance 14.708 Intake: Intake, IV Titration 14.708 Amount Diltiazem 125 mg In 14.708 Sodium Chloride 0.9% 100 ml @ 5 MG/HR 5 mls/hr IV .Q24H [facility] Rx#:[id number] Other: # Voids 1 # Bowel Movements 2 Weight 69.4 kg Results 06/02/20 10:50 06/02/20 10:50 Cardiac Enzymes 06/02/20 06/02/20 Range/Units 10:50 10:50 AST 26 (17-59) U/L Troponin I <0.012 (0.000-0.034) ng/mL Coagulation 06/02/20 Range/Units 10:50 PT 10.5 (9.0-12.0) sec APTT 22.0 (22.0-30.0) sec CBC 06/02/20 Range/Units 10:50 WBC 9.7 (3.8-10.6) k/uL RBC 4.91 (4.30-5.90) m/uL Hgb 15.0 (13.0-17.5) gm/dL Hct 45.8 (39.0-53.0) % Plt Count 298 (150-450) k/uL Comprehensive Metabolic Panel 06/02/20 Range/Units 10:50 Sodium 139 (137-145) mmol/L Potassium 4.8 (3.5-5.1) mmol/L Chloride 106 (98-107) mmol/L Carbon Dioxide 26 (22-30) mmol/L BUN 14 (9-20) mg/dL Creatinine 0.70 (0.66-1.25) mg/dL Glucose 106 H (74-99) mg/dL Calcium 9.6 (8.4-10.2) mg/dL AST 26 (17-59) U/L ALT 18 (4-49) U/L Alkaline Phosphatase 73 (38-126) U/L Total Protein 7.0 (6.3-8.2) g/dL Albumin 3.9 (3.5-5.0) g/dL Current Medications Generic Name Dose Route Start Last Admin Trade Name Freq PRN Reason Stop Dose Admin Aspirin 81 mg 06/03/20 21:00 Aspirin 81 Mg PO HS [facility] Calcium Carbonate/Glycine 500 mg 06/02/20 21:00 06/02/20 20:36 Calcium Carbonate 500 Mg Chewable PO 500 mg HS@2100 DIALLO Administration Docusate Sodium 100 mg 06/02/20 21:00 06/02/20 20:36 Docusate 100 Mg Cap PO 100 mg HS@2100 DIALLO Administration Famotidine 20 mg 06/03/20 09:00 06/03/20 08:09 Famotidine 20 Mg Tab PO 20 mg DAILY DIALLO Administration Diltiazem HCl 125 mg/ Sodium 125 mls @ 5 mls/hr 06/02/20 11:15 06/02/20 19:00 Chloride IV 5 mg/hr .Q24H DIALLO 5 mls/hr Infusion 5 MG/HR Sodium Chloride 1,000 mls @ 20 mls/hr 06/02/20 13:00 06/03/20 03:18 Saline 0.9% IV Not Given .Q24H [facility]ALLO Lacosamide 100 mg 06/02/20 21:00 06/02/20 20:36 Lacosamide 50 Mg Tablet PO 100 mg BID@0800,2100 DIALLO Administration Metoprolol Succinate 25 mg 06/03/20 09:00 06/03/20 08:09 Metoprolol Succinate (Er) 25 Mg Tab.Er.24h PO 25 mg DAILY DIALLO Administration Mupirocin 1 applic 06/02/20 13:48 Mupirocin 2% Oint 22 Gm Tube TOPICAL BID PRN skin irritations on hands Naloxone HCl 0.2 mg 06/02/20 12:54 Naloxone 0.4 Mg/Ml 1 Ml Vial IV Q2M PRN Opioid Reversal (Midazolam [Nayzilam 1 spray 06/02/20 13:48 ] 5 Mg/0.1 Ml Koppel) INHALATION DIRECTED PRN Seizures Nystatin 1 applic 06/02/20 13:48 Nystatin 100,000 Unit/Gm Powd 15 Gm TOPICAL BID PRN Rash Tizanidine HCl 2 mg 06/02/20 21:00 06/03/20 08:10 Tizanidine 4 Mg Tab PO 2 mg BID@0800,2100 DIALLO Administration Intake and Output 06/02/20 06/03/20 06/03/20 22:59 06:59 14:59 Intake Total 14.708 Balance 14.708 Intake: Intake, IV Titration 14.708 Amount Diltiazem 125 mg In 14.708 Sodium Chloride 0.9% 100 ml @ 5 MG/HR 5 mls/hr IV .Q24H [facility] Rx#:[id number] Other: # Voids 1 # Bowel Movements 2 Weight 69.4 kg 06/02/20 10:50 06/02/20 10:50
--- NOTE | 2020-06-03 14:02 | P.DS ---
Providers Date of admission: 06/02/20 12:54 Expected date of discharge: 06/03/20 Attending physician: Ryan Dozier Consults: 06/02/20 12:54 Consult Physician Routine Consulting Provider: Tyrone Gustafson Consult Reason/Comments: a fib Do you want consulting provider notified?: Yes Primary care physician: Freeman Stone [facility] Course: HISTORY OF PRESENT ILLNESS 55-year-old male one of Dr. 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 fib with RVR was admitted for 24 hours and was discharge when his A. fib/A flutter was under control. Patient apparently has been having recurrent episode of seizure was seen by his neurologist at [facility] and Vempat dose was adjusted with family has not done it yet patient had a seizure episode today was followed by severe agitation and slight worsening mental status change and found to have very rapid pulse running close to 160 beats per minutes similar to what happened and his last hospitalization ended up coming to the emergency department at [facility] where was seen and evaluated still found to be in A. fib with RVR with pulse rate running over 150 beats per minutes. Patient was started on Cardizem drip brought the pulse rate down and he was very agitated was biting his wrist at the time with the caregiver and his sister stain on his bedside patient become slightly bit,. Patient will be hospitalized for the above problem will be seen cardiology and if needed neurology. EF from last admission was only 45% Pt was discharged on Eliquis 5mg BID along with Metoprolol 50mg BID and apparently was changed after discharged to go back on old BP meds and no Anticoagulation???. 06/03: Patient is seen again today in the emergency center. His sister has spent the night with him at the bedside. Patient is currently in a sinus rhythm, rate controlled. Cardiology has evaluated and made medication changes and has cleared the patient her discharge. Patient has been afebrile, heart rate 90, blood pressure 102/72, pulse ox 95% on room air. Patient has not been on eliquis due to neurologist recommendations as patient is a self-biter and also has frequent falls with seizures. Patient will be discharged home today in stable condition. ASSESSMENT AND PLAN 1 . Typical atrial flutter 2 Cardiomyopathy 3 seizure with recurrent seizure activity 4 behavioral problem 5 hypertension 6 hyperglycemia 7 hyperlipidemia 8 history of cerebral palsy and hydrocephalus post shunt DISCHARGE PLAN home today. Impression and plan of care have been directed as dictated by the signing physician. Tatiana Roa nurse practitioner acting as scribe for signing physician. Plan - Discharge Summary Discharge Rx Participant: No New Discharge Prescriptions: New Metoprolol Succinate (ER) [Toprol XL] 25 mg PO DAILY #90 tab.er.24h Aspirin 325 mg PO DAILY #30 tab Discontinued Nebivolol [Bystolic] 5 mg PO DAILY@0800 Aspirin 325 mg PO HS No Action Midazolam [Nayzilam] 1 spray INTRANASAL DIRECTED PRN PRN Reason: Seizures Mupirocin [Mupirocin 2%] 1 applic TOPICAL BID PRN PRN Reason: skin irritations on hands Lacosamide [Vimpat] 100 mg PO BID@0800,2100 tiZANidine HCL 2 mg PO BID@0800,2100 Docusate [Colace] 100 mg PO HS@2100 Calcium Carbonate [Calcium] 300 mg PO HS@2099 Nystatin 100,000 Unit/gm Powd [Mycostatin Powder] 1 applic TOPICAL BID PRN PRN Reason: Rash Discharge Medication List Calcium Carbonate [Calcium] 300 mg PO HS@209905/13/20 [History] Docusate [Colace] 100 mg PO HS@209905/13/20 [History] Lacosamide [Vimpat] 100 mg PO BID@0800,209905/13/20 [History] Midazolam [Nayzilam] 1 spray INTRANASAL DIRECTED PRN 05/13/20 [History] Mupirocin [Mupirocin 2%] 1 applic TOPICAL BID PRN 05/13/20 [History] Nystatin 100,000 Unit/gm Powd [Mycostatin Powder] 1 applic TOPICAL BID PRN 05/13/20 [History] tiZANidine HCL 2 mg PO BID@0800,209905/13/20 [History] Aspirin 325 mg PO DAILY #30 tab 06/03/20 [Rx] Metoprolol Succinate (ER) [Toprol XL] 25 mg PO DAILY #90 tab.er.24h 06/03/20 [Rx] Follow up Appointment(s)/Referral(s): Ross Falk MD [STAFF PHYSICIAN] - 06/17/20 Freeman Stone DO [Primary Care Provider] - 1 Week Discharge Disposition: HOME SELF-CARE
[2020-06-03] MEDS ORDERED: ASPIRIN 81 MG PO SCH (21:00)
== END 2020-06-03 17:18 | disposition home or self-care (01) ==
LOC: EC 10:33 → 3SCARD 12:54
PROVIDERS: ADMIT Internal Medicine Geriatric Medicine; ATTEND Internal Medicine Geriatric Medicine
DX: I48.3 Typical atrial flutter (principal); I42.9 Cardiomyopathy, unspecified; G40.909 Epilepsy, unspecified, not intractable, without status epilepticus; I10 Essential (primary) hypertension; E78.5 Hyperlipidemia, unspecified; R29.6 Repeated falls; R73.9 Hyperglycemia, unspecified; G80.9 Cerebral palsy, unspecified; I47.1 Supraventricular tachycardia; G91.8 Other hydrocephalus; Z98.2 Presence of cerebrospinal fluid drainage device; Z82.49 Family history of ischemic heart disease and other diseases of the circulatory system; Z79.82 Long term (current) use of aspirin; Z79.899 Other long term (current) drug therapy; Z88.8 Allergy status to other drugs, medicaments and biological substances
CPT/HCPCS: 96376; 96365; 96366; 96375; 99291; 36415; 93005; 84439; 84481; 80053; 83735; 84443; 84484; 85025; 85610; 85730; G0378 ×2; J3360

== ENCOUNTER → 2021-08-09 | Outpatient (CLI) | payer MEDICARE, OTHER | END | disposition home or self-care (01) | LOC: LABWHC1 12:58 | PROVIDERS: ATTEND Family Medicine | DX: L89.91 Pressure ulcer of unspecified site, stage 1 (principal) | CPT/HCPCS: 36415; 85379 ==